=== PATIENT | male | born 1945 | race Caucasian/White ===

== ENCOUNTER 2022-04-09 13:35 | Outpatient (CLI) | payer MEDICARE, SELFPAY ==
[2022-04-09 19:42] LABS: Hematocrit 50.2 % (42.0-52.0); Hemoglobin 16.4 g/dL (14.0-18.0); Mean Corpuscular HGB Conc 32.7 g/dl (32-36); Mean Corpuscular Hemoglobin 30.3 pg (26-34); Mean Corpuscular Volume 92.8 fl (80-100); Mean Platelet Volume 10.1 fl (7.4-10.4); Platelet Count Result 203 k/mm3 (150-375); Red Blood Count 5.41 M/mm3 (4.6-6.20); Red Cell Distribution Width 13.1 % (11.5-14.5); White Blood Count 5.5 K/mm3 (4.5-10.0)
[2022-04-09 19:52] LABS: Alanine Aminotransferase 28 U/L (6-50); Albumin Level 4.2 g/dL (3.5-5.1); Alkaline Phosphatase 75 U/L (38-126); Anion Gap 12 mmol/L (8-16); Aspartate Amino Transferase 48 U/L (17-59); Blood Urea Nitrogen 24 mg/dL (9-20); Calcium 8.7 mg/dL (8.4-10.2); Carbon Dioxide 28 mmol/L (22-30); Chloride 101 mmol/L (98-107); Cholesterol 194 mg/dL (0-200); Estimated Glomerular Filt Rate > 60; Glucose 89 mg/dL (65-110); HDL Direct 43 mg/dL; Potassium 3.8 mmol/L (3.4-5.0); Sodium 141 mmol/L (137-145); Triglycerides 202 mg/dL (<150)
[2022-04-09 20:03] LABS: LDL Cholesterol Direct 109 mg/dL
[2022-04-09 20:13] LABS: Hemoglobin A1C 5.4 % (<5.7)
== END 2022-04-09 13:36 | disposition home or self-care (01) ==
LOC: ANHGOSHLAB 13:39
PROVIDERS: PCP Family Medicine; Visit Provider Nurse Practitioner Family
DX: E11.9 Type 2 diabetes mellitus without complications (principal); E78.5 Hyperlipidemia, unspecified; I10 Essential (primary) hypertension
CPT/HCPCS: 36415; 80053; 80061; 83036; 85027

== ENCOUNTER 2022-11-18 18:53 | Emergency (ER) | payer MEDICARE, SELFPAY ==
--- NOTE | ~2022-11-18 | XR_ITS ---
XR hip RT 2V w AP pelvis 11/18/2022 19:51 Indication: Right hip pain after fall Procedure: 3 views right hip including AP pelvis Comparison: No prior studies for comparison. Findings: There is anatomic alignment. Pelvic rings are intact. There are degenerative changes of the pubic symphysis. No acute fracture or traumatic malalignment. Impression: 1: No acute fracture. Reviewed, dictated and finalized at location A. Impression: 1: No acute fracture.
--- NOTE | ~2022-11-18 | XR_ITS ---
XR knee RT 3V, XR femur RT min 2V 11/18/2022 19:51 Indication: Right knee pain after fall Procedure: 3 views right knee and 2 views right femur Comparison: No prior studies for comparison. Findings: No fracture or traumatic malalignment. There is a large amount of amorphous soft tissue in the region of the quadriceps tendon, suspicious for tear. There is a joint effusion. No foreign arabella s. Impression: 1: Soft tissue mass superior to the patella, most likely secondary to quadriceps tear. Consider corre lation with MRI. Reviewed, dictated and finalized at location A. Impression: 1: Soft tissue mass superior to the patella, most likely secondary to quadricep s tear. Consider correlation with MRI. Impression: 1: Soft tissue mass superior to the patella, most likely secondary to quadricep s tear. Consider correlation with MRI.
[2022-11-18 19:02] VITALS: BP 167/100; PULSE 98; RESP 18; TEMP 36.6; O2SAT 97
--- NOTE | 2022-11-18 20:00 | ED.GENADULT ---
HPI - General Adult General Chief complaint: Fall Stated complaint: RIGHT LEG WEAKNESS/PAIN S/P FALL Time Seen by Provider: 11/18/22 19:04 History of Present Illness HPI narrative: Is a 76-year-old gentleman presenting ED after a fall. 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 he struck his leg on the right thigh. Afterwards he was unable to stand due to pain. Patient denies any head trauma or any medical symptoms preceding the fall. Denies any other injuries. He is not on blood thinners. Related Data Home Medications Medication Instructions Recorded Confirmed cyanocobalamin (vitamin B-12) 5,000 mcg PO DAILY 09/21/19 10/16/22 5,000 mcg capsule metoprolol succinate 25 mg 25 mg PO DAILY 09/21/19 10/16/22 tablet,extended release 24 hr (Toprol XL) multivitamin 1 tablet PO DAILY 09/21/19 10/16/22 ascorbic acid (vitamin C) 500 mg 1,000 mg PO DAILY 09/29/21 10/16/22 capsule cholecalciferol (vitamin D3) 25 25 mcg PO DAILY 09/29/21 10/16/22 mcg (1,000 unit) capsule atorvastatin 10 mg tablet 10 mg PO QHS 10/16/22 10/16/22 Allergies Allergy/AdvReac Type Severity Reaction Status Date / Time Penicillins Allergy Unknown Unknown Verified 10/16/22 09:52 SHELLFISH Allergy Severe SEVERE Uncoded 10/16/22 09:52 N/V/D [facility] Past Medical History Medical History (Updated 11/18/22 @ 21:02 by Baldo Allison MD) Anxiety Aortic stenosis Atopic dermatitis Essential (primary) hypertension Hyperlipidemia Prediabetes Quadriceps tendon rupture Thoracic ascending aortic aneurysm Surgical History Surgical History History of cataract surgery (~2014) b/l History of tonsillectomy (~1971) Family History Family History Father Family history of elevated blood lipids Other Family history of mental disorder Social History Social History Social History: . Lives in [place] with his 2 cats. Pt is very active with [employer] in [place]. He enjoys volunteering. 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 Smoking status: Former smoker Tobacco type: cigarettes Smoking end date: 08/02/89 Additional smoking assessment comments: Quit in 1980s Alcohol intake: current Substance use: never Substance use type: does not use Lack of Transportation: No Lack of Food: Never True Current Housing: I Have Housing Concerned About Future Housing: No Difficulty Paying Gas/Electric Bills: No Difficulty Paying for Meds: No Currently Unemployed: No Education: Decline to Answer Difficulty w/ Childcare or Family Care: Decline to Answer Exam Narrative: APPEARANCE: No apparent distress. Patient is pleasant and polite during the interview Head: atraumatic. EYES: EOMI, NOSE: Atraumatic NECK: Trachea midline RESPIRATORY: No increased rate of breathing CARDIOVASCULAR: RRR, ABDOMINAL: Non-distended MUSCULOSKELETAl: full exam of the right lower extremity revealed tenderness along the lateral thigh. Patient is unable to extend at the knee. Flexion at the knee is intact. hip flexion and extension is intact. Foot is warm cap refills less than 2 seconds. Pain is not out of proportion. NEURO: Alert. Moving 4/4 extremities SKIN:: Warm, dry. Normal color PSYCHIATRIC: Normal affect Course Vital Signs Vital signs: Vital Signs Temperature 97.9 F 11/18/22 19:02 Pulse Rate 98 11/18/22 19:02 Respiratory Rate 18 11/18/22 19:02 Blood Pressure 167/100 H 11/18/22 19:02 Pulse Oximetry 97 11/18/22 19:02 Oxygen Delivery Room Air 11/18/22 19:02 Temperature 97.9 F 11/18/22 19:02 Pulse Rate 89 11/18/22 20:13 Respiratory Rate 19 11/18/22 20:13 Blood Pressure 124/85 11/18/22 20:13 Pulse Oximetry 97 11/18/22 20:13 Oxygen Delivery Room
[2022-11-18] MEDS: HYDROcodone/acetaminophen (*CRX) 5-325 MG TABLET 1 TAB PO (20:06)
[2022-11-18] MEDS: ACETAMINOPHEN 325 MG TABLET 650 MG PO (20:06)
[2022-11-18] MEDS: ONDANSETRON HCL ODT 4 MG TABLET (20:07)
[2022-11-18 20:13] VITALS: BP 124/85; PULSE 89; RESP 19; O2SAT 97
== END 2022-11-18 22:04 | disposition home or self-care (01) ==
PROVIDERS: Emergency Provider Emergency Medicine; PCP Family Medicine
DX: S76.911A Strain of unspecified muscles, fascia and tendons at thigh level, right thigh, initial encounter (principal); I35.0 Nonrheumatic aortic (valve) stenosis; I10 Essential (primary) hypertension; E78.5 Hyperlipidemia, unspecified; R73.03 Prediabetes; Z98.42 Cataract extraction status, left eye; Z98.41 Cataract extraction status, right eye; Z87.891 Personal history of nicotine dependence; W01.0XXA Fall on same level from slipping, tripping and stumbling without subsequent striking against object, initial encounter
CPT/HCPCS: 73502; 73552; 73562; 99284; A9270

== ENCOUNTER 2022-12-23 09:53 | Outpatient (RCR) | payer MEDICARE, SELFPAY ==
--- NOTE | 2022-12-23 11:11 | PTOPEVAL1 ---
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 he reports he has had xrays of the R knee. he reports he has a torn muscle. he reports his ortho believes there is a muscle torn and possibly a ligament torn in the knee as well. he reports his ortho would like to handle this conservatively for now and work on walking again without an AD. he reports prior to his injury he was using no AD. he reports he would get fatigue with activities due to his aortic stenosis. he reports he is currently unable to walk without crutches. he reports he is also wearing a brace which he did not need prior to his injury. 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 he reports little pain in the R knee, but reports it will buckle on him from time to time. Reported Pain Level Pain Score 0: Self Report Assessment PT Clinical Summary mr. amaya is a 77 yo man who presents to skilled PT services for evaluation and treatment of R knee pain following an injury about 5 weeks ago. he presents this date with signs and symptoms of a quad tendon tear of the R knee. he would benefit from continued skilled PT services to improve his rom, strength, gait mechanics, and return to prior level functional activities/endurance. Plan of Care Interventions Electrical Stimulation,Gait Training,Hot Pack/Cold Pack,Manual Therapy,Neuro Re-education,Patient/ Caregiver Educati,Therapeutic Activities, Therapeutic Exercise PT Services Indicated Yes Treatment Frequency and 3x weekly for 12 visits Duration These treatments will address the objective and functional deficits as defined above. The patient will be advanced safely and appropriately in order for the patient to progress towards his/her prior level of function. Additional exercises will be introduced and as well as a comprehensive home exercise program upon discharge, if needed, ?to ensure carryover of functional gains achieved in the clinic. This treatment plan has been reviewed and agreement upon by the patient.
--- NOTE | 2022-12-23 11:11 | OPREHPOC ---
Outpatient Therapy Plan of Care This is a Multidisciplinary Plan of Care that may contain components documented by all disciplines (PT, OT, and ST.) PT Problem 1 PT Problem #1 Knowledge Deficit PT Goal 1 Goal independent and compliant with HEP to improve tolerance for continued skilled PT and exercises Target Visit 6 PT Problem 2 PT Problem #2 Impaired Strength PT Goal 1 Goal 1. patient to display 3/5 R knee extension 2. patient to display 3/5 R hip flexion without extension lag of the knee Target Visit 12 PT Problem 3 PT Problem #3 Impaired Range of Motion PT Goal 1 Goal patient to achieve 0-130 degrees arom R knee mobility Target Visit 12 PT Problem 4 PT Problem #4 Impaired Functional Mobil PT Goal 1 Goal 1. patient to DC use of all AD for ambulation 2. patient to stand and play music for 4 hours without knee buckling or feeling unstable 3. LEFS to display less than 30% functional deficits Target Visit 12
--- NOTE | 2023-01-18 16:54 | PTOPPROG ---
Assessment and note entered by JT File, PT Evaluation Information Assessment Status Progress Diagnosis R quad strain Onset 11/18/22 Subjective Information patient reports he continues to be weak in the R knee. he reports he is still not able to drive. he reports he has to have a cane for ambulation. Assessment PT Clinical Summary mr. amaya presents to skilled PT for his 10th skilled therapy visit. he is progressed from walker to cane for ambulation, but continues to display signs/symptoms of R quad tear noting lack of ability to perform LAQ and SLR. he has made progress in goals for HEP performance and pain control. he would benefit from continued skilled PT for remainder of visits on initial POC to progress HEP and prepare for future R knee surgery . Plan of Care Interventions Electrical Stimulation,Gait Training,Hot Pack/Cold Pack,Manual Therapy,Neuro Re-education,Patient/ Caregiver Educati,Therapeutic Activities, Therapeutic Exercise PT Services Indicated Yes Treatment Frequency and continue skilled PT for 2 more visits per initial Duration POC These treatments will address the objective and functional deficits as defined above. The patient will be advanced safely and appropriately in order for the patient to progress towards his/her prior level of function. Additional exercises will be introduced and as well as a comprehensive home exercise program upon discharge, if needed, ?to ensure carryover of functional gains achieved in the clinic. This treatment plan has been reviewed and agreement upon by the patient.
--- NOTE | 2023-01-22 15:13 | OPREHPOC ---
Outpatient Therapy Plan of Care This is a Multidisciplinary Plan of Care that may contain components documented by all disciplines (PT, OT, and ST.) PT Problem 1 PT Problem #1 Knowledge Deficit PT Goal 1 Goal independent and compliant with HEP to improve tolerance for continued skilled PT and exercises Target Visit 6 Progress Met PT Problem 2 PT Problem #2 Impaired Strength PT Goal 1 Goal 1. patient to display 3/5 R knee extension 2. patient to display 3/5 R hip flexion without extension lag of the knee Target Visit 12 Progress Not Met PT Problem 3 PT Problem #3 Impaired Range of Motion PT Goal 1 Goal patient to achieve 0-130 degrees arom R knee mobility Target Visit 12 Progress Partially Met PT Problem 4 PT Problem #4 Impaired Functional Mobil PT Goal 1 Goal 1. patient to DC use of all AD for ambulation 2. patient to stand and play music for 4 hours without knee buckling or feeling unstable 3. LEFS to display less than 30% functional deficits Target Visit 12 Progress Not Met
--- NOTE | 2023-01-22 15:13 | PTOPDC ---
Assessment and note entered by Joleen Rowe DPT Evaluation Information Assessment Status Re-evaluation Diagnosis R quad strain Onset 11/18/22 Subjective Information Patient reports he has not driven. He reports he has been walking around the house without a cane but has noticed more buckling without the cane Reported Pain Level Pain Score 0: Self Report Pain Score 0: Self Report Assessment PT Clinical Summary Patient was seen for 12 visits of skilled PT. He did not meet goals but improved functional ability . He continues to lack strength of the R LE and decreased stabity at the R LE. He has improved his ability to ambulate with a STC and proper gait mechanics. Patient is independent with HEP and will be discharged at this time. Plan of Care PT Services Indicated No
== END 2023-01-22 15:16 | disposition home or self-care (01) ==
LOC: CHSPT 09:53
PROVIDERS: Visit Provider Orthopaedic Surgery
DX: S76.119D Strain of unspecified quadriceps muscle, fascia and tendon, subsequent encounter (principal)
CPT/HCPCS: 97110; 97161; 97530

== ENCOUNTER 2023-06-03 14:18 | Outpatient (RCR) | payer MEDICARE, SELFPAY ==
--- NOTE | 2023-06-03 15:29 | OPREHPOC ---
Outpatient Therapy Plan of Care This is a Multidisciplinary Plan of Care that may contain components documented by all disciplines (PT, OT, and ST.) PT Problem 1 PT Problem #1 Knowledge Deficit PT Goal 1 Goal 1. independent and compliant with HEP Target Visit 8 PT Problem 2 PT Problem #2 Impaired Strength PT Goal 1 Goal 1. 5/5 R knee flex and extension 2. 4+/5 R hip flexion with no extenion lag in SLR Target Visit 16 PT Problem 3 PT Problem #3 Impaired Range of Motion PT Goal 1 Goal 1. 0-120 degrees or better active R knee mobility Target Visit 16 PT Problem 4 PT Problem #4 Impaired Functional Mobil PT Goal 1 Goal 1. patient to ambulate with no AD and no brace for 6 minutes for 800ft or better 2. patient to ambulate up and down steps with reciprocal mechanics and no AD 3. patient to ambulate with normal gait mechanics on level surfaces 4. patient to squat and lift 30lbs box from floor to waist with safe mechanics 5. patient to return to recreational music playing and other functional activities Target Visit 16
--- NOTE | 2023-06-03 15:29 | PTOPEVAL1 ---
Assessment and note entered by JT File, PT Evaluation Information Assessment Status Evaluation Diagnosis s/p quad tendon repair R Onset 04/06/23 Subjective Information patient had a quad tendon tear on 11/18/22. he had repair of this tear on 04/06/23. he reports he was locked in extension on the R knee for about 6- 7 weeks post surgery. he is coming to therapy now to improve his strength, rom, and gait. he reports he still cannot bend the knee fully, has trouble walking, and leary of steps. he reports he uses a knee brace at all times, and uses a can and hand rails for steps. Reported Pain Level Pain Score 0: Self Report Assessment PT Clinical Summary mr. amaya is a 77 yo man who presents to skilled PT services for evaluation and treatment of R knee decreased rom, decreased strength, and abnormal gait mechanics following a quad tendon repair of the R knee. he would benefit from continued skilled PT to improve his objective/functional deficits and progress towards a return to his prior level functional activities to improve his quality of life. Plan of Care Interventions Electrical Stimulation,Gait Training,Hot Pack/Cold Pack,Intermittent Compression,Manual Therapy, Neuro Re-education,Patient/Caregiver Educati, Therapeutic Activities,Therapeutic Exercise PT Services Indicated Yes Treatment Frequency and 2x weekly for 16 visits Duration These treatments will address the objective and functional deficits as defined above. The patient will be advanced safely and appropriately in order for the patient to progress towards his/her prior level of function. Additional exercises will be introduced and as well as a comprehensive home exercise program upon discharge, if needed, ?to ensure carryover of functional gains achieved in the clinic. This treatment plan has been reviewed and agreement upon by the patient.
--- NOTE | 2023-06-14 09:31 | PCPTNOTE ---
Pt. called and cancelled due to a developed illness.
--- NOTE | 2023-07-28 13:57 | OPREHPOC ---
Outpatient Therapy Plan of Care This is a Multidisciplinary Plan of Care that may contain components documented by all disciplines (PT, OT, and ST.) PT Problem 1 PT Problem #1 Knowledge Deficit PT Goal 1 Goal 1. independent and compliant with HEP Target Visit 8 Progress Met PT Problem 2 PT Problem #2 Impaired Strength PT Goal 1 Goal 1. 5/5 R knee flex and extension -partially met 2. 4+/5 R hip flexion with no extenion lag in SLR -met Target Visit 16 Comment continue PT Problem 3 PT Problem #3 Impaired Range of Motion PT Goal 1 Goal 1. 0-120 degrees or better active R knee mobility -progressing towards, continue Target Visit 16 Progress Partially Met PT Problem 4 PT Problem #4 Impaired Functional Mobil PT Goal 1 Goal 1. patient to ambulate with no AD and no brace for 6 minutes for 800ft or better -met 2. patient to ambulate up and down steps with reciprocal mechanics and no AD -partially met 3. patient to ambulate with normal gait mechanics on level surfaces -progressing towards 4. patient to squat and lift 30lbs box from floor to waist with safe mechanics -not met 5. patient to return to recreational music playing and other functional activities -not met Target Visit 16 Progress Partially Met Comment Continue all except 1 which was met
--- NOTE | 2023-07-28 13:57 | PTOPPROG ---
Assessment and note entered by Jeana Munoz, PT Evaluation Information Assessment Status Progress Diagnosis s/p R quadriceps tendon repair Onset 04/06/23 Subjective Information Ari Escalona reports his right knee and quadriceps is doing well. He has not had pain in it just some stiffness. He is still taking stairs one at a time but is able to walk without a brace or assistive device as much as he needs to for shopping and daily activities. He also has not drove yet. He notes his energy level has been intermittent since having COVID a few weeks ago. Assessment PT Clinical Summary Ari sEcalona has completed 8 skilled PT visits following a right quadriceps tendon repair performed on 04/06/23. He is reporting minimal pain but still has stiffness in his knee. He missed 1.5 weeks of PT due to having COVID. He is making steady progress with his knee ROM and strength. He demonstrates 117 degrees of passive knee flexion and 112 degrees of active assisted knee flexion ROM. He was able to ambulate 1,200 feet during the 6 minute walk test today. He continues to have mild limitations in ROM as well as functional strength for lifting and stair negotiation. He will continue to benefit from skilled PT to further address these deficits. Plan of Care Interventions Gait Training PT Services Indicated Yes Treatment Frequency and 2 times a week for 8 visits to finish original POC Duration These treatments will address the objective and functional deficits as defined above. The patient will be advanced safely and appropriately in order for the patient to progress towards his/her prior level of function. Additional exercises will be introduced and as well as a comprehensive home exercise program upon discharge, if needed, ?to ensure carryover of functional gains achieved in the clinic. This treatment plan has been reviewed and agreement upon by the patient.
--- NOTE | 2023-08-26 11:32 | OPREHPOC ---
Outpatient Therapy Plan of Care This is a Multidisciplinary Plan of Care that may contain components documented by all disciplines (PT, OT, and ST.) PT Problem 1 PT Problem #1 Knowledge Deficit PT Goal 1 Goal 1. independent and compliant with HEP Target Visit 8 Progress Met PT Problem 2 PT Problem #2 Impaired Strength PT Goal 1 Goal 1. 5/5 R knee flex and extension -partially met 2. 4+/5 R hip flexion with no extenion lag in SLR -met Target Visit 18 Comment continue PT Problem 3 PT Problem #3 Impaired Range of Motion PT Goal 1 Goal 1. 0-120 degrees or better active R knee mobility -progressing towards, continue Target Visit 18 Progress Partially Met PT Problem 4 PT Problem #4 Impaired Functional Mobil PT Goal 1 Goal 1. patient to ambulate with no AD and no brace for 6 minutes for 800ft or better -met 2. patient to ambulate up and down steps with reciprocal mechanics and no AD -partially met 3. patient to ambulate with normal gait mechanics on level surfaces -progressing towards 4. patient to squat and lift 30lbs box from floor to waist with safe mechanics -not met 5. patient to return to recreational music playing and other functional activities -not met Target Visit 18 Progress Partially Met Comment Continue all except 1 which was met
--- NOTE | 2023-08-26 11:32 | PTOPPROG ---
Assessment and note entered by Jeana Munoz, PT Evaluation Information Assessment Status Progress Diagnosis s/p R quadriceps tendon repair Onset 04/06/23 Subjective Information Ari Escalona presents to PT today after a 4 week absence. He reports he has not been able to come to PT because his daughter has not been able to bring him as she has been at the hospital with her daughter and he just got his own vehicle working. He reports he was doing well with his right leg until 08/24/23 he was trying to lift a 60# bag of birdseed out of his car and he felt a pull in the front of his hip. He has been having pain in the upper thigh since then but it is getting a little better each day. He has not been having pain in the lower thigh or knee but he feels like his ROM has declined because he has not been performing exercises at home daily. He reports he usually performs exercises every other day. He continues to have difficulty with walking down stairs and has to take them one at a time. He also has difficulty bending the knee. Assessment PT Clinical Summary Ari Escalona has completed 10 physical therapy visits for a right quadriceps tendon repair. He has had a gap in treatment the last 4 weeks due to his granddaughter being hospitalized and not having a vehicle or ride to PT. He is reporting ongoing difficulty bending the right knee, lifting heavier weight, and going down stairs. He objectively demonstrates a regression in right knee flexion AROM since last visit, decreased right knee strength, decreased balance, and decreased gait. He demonstrates a moderate fall risk per the Tinetti Balance Scale. He will continue to benefit from skilled PT to address these limitations and return him to his PLOF. Plan of Care Interventions Neuro Re-education,Patient/Caregiver Educati, Therapeutic Activities,Therapeutic Exercise PT Services Indicated Yes Treatment Frequency and Continue skilled PT 2 times a week for 8 visits Duration These treatments will address the objective and functional deficits as defined above. The patient will be advanced safely and appropriately in order for the patient to progress towards his/her prior level of function. Additional exercises will be introduced and as well as a comprehensive home exercise program upon discharge, if needed, ?to ensure carryover of functional gains achieved in the clinic. This treatment plan has been reviewed and agreement upon by the patient.
--- NOTE | 2023-08-31 14:46 | OPREHPOC ---
Outpatient Therapy Plan of Care This is a Multidisciplinary Plan of Care that may contain components documented by all disciplines (PT, OT, and ST.) PT Problem 1 PT Problem #1 Knowledge Deficit PT Goal 1 Goal 1. independent and compliant with HEP Target Visit 8 Progress Met PT Problem 2 PT Problem #2 Impaired Strength PT Goal 1 Goal 1. 5/5 R knee flex and extension -partially met 2. 4+/5 R hip flexion with no extenion lag in SLR -met Target Visit 18 PT Problem 3 PT Problem #3 Impaired Range of Motion PT Goal 1 Goal 1. 0-120 degrees or better active R knee mobility -progressing towards, continue Target Visit 18 Progress Partially Met PT Problem 4 PT Problem #4 Impaired Functional Mobil PT Goal 1 Goal 1. patient to ambulate with no AD and no brace for 6 minutes for 800ft or better -met 2. patient to ambulate up and down steps with reciprocal mechanics and no AD -partially met 3. patient to ambulate with normal gait mechanics on level surfaces -progressing towards 4. patient to squat and lift 30lbs box from floor to waist with safe mechanics -not met 5. patient to return to recreational music playing and other functional activities -not met Target Visit 18 Progress Partially Met
== END 2023-08-31 18:00 | disposition still patient (30) ==
LOC: CHSPT 14:18
DX: S76.111D Strain of right quadriceps muscle, fascia and tendon, subsequent encounter (principal)
CPT/HCPCS: 97016; 97110; 97140; 97150; 97161; 97530; 97750

== ENCOUNTER 2023-09-02 13:36 | Outpatient (RCR) | payer MEDICARE, SELFPAY ==
--- NOTE | 2023-09-23 14:30 | OPREHPOC ---
Outpatient Therapy Plan of Care This is a Multidisciplinary Plan of Care that may contain components documented by all disciplines (PT, OT, and ST.) PT Problem 1 PT Problem #1 Knowledge Deficit PT Goal 1 Goal 1. independent and compliant with HEP Target Visit 8 Progress Met PT Problem 2 PT Problem #2 Impaired Strength PT Goal 1 Goal 1. 5/5 R knee flex and extension -partially met 2. 4+/5 R hip flexion with no extenion lag in SLR -met Target Visit 22 Comment continue PT Problem 3 PT Problem #3 Impaired Range of Motion PT Goal 1 Goal 1. 0-120 degrees or better active R knee mobility -progressing towards, continue Target Visit 22 Progress Partially Met PT Problem 4 PT Problem #4 Impaired Functional Mobil PT Goal 1 Goal 1. patient to ambulate with no AD and no brace for 6 minutes for 800ft or better -met 2. patient to ambulate up and down steps with reciprocal mechanics and no AD -partially met 3. patient to ambulate with normal gait mechanics on level surfaces -progressing towards 4. patient to squat and lift 30lbs box from floor to waist with safe mechanics -met 5. patient to return to recreational music playing and other functional activities -met Target Visit 22 Progress Partially Met Comment Continue all except 1 which was met
--- NOTE | 2023-09-23 14:30 | PTOPEVAL1 ---
Assessment and note entered by Jeana Munoz, PT Evaluation Information Assessment Status Progress Diagnosis s/p R quadriceps tendon repair Onset 04/06/23 Subjective Information Ari Escalona reports his right knee is feeling good , he gets occasional pain on the outer side of the knee but not very often or very high pain. He feels his range of motion is where it should be but his strength is not quite where it needs to be . He feels his strength will improve better if he can continue PT and utilize the equipment here and be guided by a PT. He is still not able to go down stairs reciprocally. He also has difficulty carrying things up and down stairs. Reported Pain Level Pain Score 0: Self Report Assessment PT Clinical Summary Ari Escalona has completed 18 skilled PT visits since undergoing a right quadriceps tendon repair on 04/06/23. He did have a gap in treatment due to his daughter and granddaughter being hospitalized. He is reporting good ROM in the right knee but he does not feel like his strength is doing well enough. He still has difficulty with going down stairs reciprocally and carrying items up and down stairs. He demonstrates improved right knee ROM, improving right knee strength, and improving gait. He continues to have functional weakness in the right quadriceps as observed with stair negotiation he can not descend reciprocally. He will continue to benefit from skilled PT to further address right knee strength and functional abilities. Plan of Care Interventions Gait Training,Neuro Re-education,Patient/Caregiver Educati,Therapeutic Activities,Therapeutic Exercise PT Services Indicated Yes Treatment Frequency and Continue 2 times a week for 4 more visits Duration These treatments will address the objective and functional deficits as defined above. The patient will be advanced safely and appropriately in order for the patient to progress towards his/her prior level of function. Additional exercises will be introduced and as well as a comprehensive home exercise program upon discharge, if needed, ?to ensure carryover of functional gains achieved in the clinic. This treatment plan has been reviewed and agreement upon by the patient.
--- NOTE | 2023-10-07 13:54 | OPREHPOC ---
Outpatient Therapy Plan of Care This is a Multidisciplinary Plan of Care that may contain components documented by all disciplines (PT, OT, and ST.) PT Problem 1 PT Problem #1 Knowledge Deficit PT Goal 1 Goal 1. independent and compliant with HEP Target Visit 8 Progress Met PT Problem 2 PT Problem #2 Impaired Strength PT Goal 1 Goal 1. 5/5 R knee flex and extension -met 2. 4+/5 R hip flexion with no extenion lag in SLR -met Target Visit 22 Progress Met Comment continue PT Problem 3 PT Problem #3 Impaired Range of Motion PT Goal 1 Goal 1. 0-120 degrees or better active R knee mobility Target Visit 22 Progress Met PT Problem 4 PT Problem #4 Impaired Functional Mobil PT Goal 1 Goal 1. patient to ambulate with no AD and no brace for 6 minutes for 800ft or better -met 2. patient to ambulate up and down steps with reciprocal mechanics and no AD -met 3. patient to ambulate with normal gait mechanics on level surfaces -met 4. patient to squat and lift 30lbs box from floor to waist with safe mechanics -met 5. patient to return to recreational music playing and other functional activities -met Target Visit 22 Progress Met Comment Continue all except 1 which was met
--- NOTE | 2023-10-07 13:55 | PTOPDC ---
Assessment and note entered by Jeana Munoz, PT Evaluation Information Assessment Status Discharge Diagnosis s/p R quadriceps tendon repair Onset 04/06/23 Subjective Information Ari Escalona reports his right knee is doing well. He is able to perform all daily activities and feels comfortable continuing with independent exercises to continuing building strength back up. He is able to go up and down stairs now and he feels he has improved a lot with PT. Reported Pain Level Pain Score 0: Self Report Pain Score 0: Self Report Assessment PT Clinical Summary Ari Escalona has completed 22 skilled PT visits following a right quadriceps tendon repair performed on 04/06/23. He is reporting resolved pain and ability to perform all daily activities without difficulty. He demonstrates good strength in the right knee and hip, good right knee AROM, normal gait without an AD, good endurance, and good stair climbing ability. He is independent in a home exercise program to maintain knee ROM and strength in the right LE. Plan of Care PT Services Indicated No
== END 2023-10-07 14:00 | disposition home or self-care (01) ==
LOC: CHSPT 13:36
DX: S76.111D Strain of right quadriceps muscle, fascia and tendon, subsequent encounter (principal)
CPT/HCPCS: 97110; 97140; 97530; 97750

== ENCOUNTER 2023-10-01 11:05 | Emergency (ER) | payer MEDICARE, SELFPAY ==
[2023-10-01 11:14] VITALS: BP 135/77; PULSE 73; RESP 16; TEMP 37.2; O2SAT 96
--- NOTE | 2023-10-01 11:39 | ED.EYEPROB ---
HPI - Eye Problem General Chief complaint: Eye Problems Stated complaint: Eye Problem Time Seen by Provider: 10/01/23 11:54 Source: patient and RN notes reviewed Mode of arrival: ambulatory Limitations: no limitations History of Present Illness HPI Narrative: 77-year-old male presents with concern for bilateral eye redness, irritation, blurriness, drainage. Reports crusty eyes any wakes up in the morning. chief complaint: eye redness Related Data Home Medications Medication Instructions Recorded Confirmed cyanocobalamin (vitamin B-12) 5,000 mcg PO DAILY 09/21/19 10/01/23 5,000 mcg capsule metoprolol succinate 25 mg 25 mg PO DAILY 09/21/19 10/01/23 tablet,extended release 24 hr (Toprol XL) multivitamin 1 tablet PO DAILY 09/21/19 10/01/23 ascorbic acid (vitamin C) 500 mg 1,000 mg PO DAILY 09/29/21 10/01/23 capsule cholecalciferol (vitamin D3) 25 25 mcg PO DAILY 09/29/21 10/01/23 mcg (1,000 unit) capsule Allergies Allergy/AdvReac Type Severity Reaction Status Date / Time Penicillins Allergy Unknown Unknown Verified 10/01/23 11:43 SHELLFISH Allergy Severe SEVERE Uncoded 10/01/23 11:43 N/V/D Review of Systems Review of Systems: CONSTITUTIONAL: Denies malaise, chills, sweats, or fever. EYES: Denies visual changes. Reports bilateral redness, irritation, discharge. ENT: Denies rhinorrhea, congestion, sinus pain, otalgia or sore throat. SKIN: Denies rash or itching. NEUROLOGIC: Denies numbness, weakness, or headache. PSYCHIATRIC: Denies anxiety or depression. All systems reviewed & are unremarkable except as noted in HPI and below PMFSH Past Medical History Medical History Anxiety Aortic stenosis Atopic dermatitis Essential (primary) hypertension Hyperlipidemia Prediabetes Quadriceps tendon rupture Thoracic ascending aortic aneurysm Surgical History Surgical History History of cataract surgery (~2014) b/l History of tonsillectomy (~1971) Family History Family History Father Family history of elevated blood lipids Other Family history of mental disorder Social History Social History Social History: . Lives in [place] with his 2 cats. Pt is very active with [employer] in [place]. He enjoys volunteering. 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 Smoking status: Former smoker Tobacco type: cigarettes Smoking end date: 08/02/89 Additional smoking assessment comments: Quit in Alcohol intake: current Substance use: never Substance use type: does not use Lack of Transportation: No Lack of Food: Never True Current Housing: I Have Housing Concerned About Future Housing: No Difficulty Paying Gas/Electric Bills: No Difficulty Paying for Meds: No Currently Unemployed: No Education: Decline to Answer Difficulty w/ Childcare or Family Care: Decline to Answer Occupation/Education: retired Comments At time of signature, agree with nursing past medical, surgical, social and family history. There is no relevant family history pertinent to the presenting complaint Exam Narrative: GENERAL: Well-appearing, well-nourished, and in no acute distress. HEAD: Normocephalic, atraumatic. EYES: PERRLA, sclera clear, and EOMI. No nystagmus. Bilateral conjunctivae and sclera injected yellow drainage. Upper and lower eyelid unremarkable, no periorbital edema noted ENT: Nares clear, turbinates pink, no rhinorrhea or epistaxis. Mucous membranes moist. TM pearly antony with sharp light reflex bilaterally; no tragal tenderness. NECK: Supple. CHEST: No respiratory distress. Speaks in full sentences. HEART: Regular rate and rhythm. SKIN: Warm, dry, no visible rash. NEURO: Alert and o
== END 2023-10-01 12:00 | disposition home or self-care (01) ==
PROVIDERS: Emergency Provider Nurse Practitioner; PCP Family Medicine
DX: H10.9 Unspecified conjunctivitis (principal); Z87.891 Personal history of nicotine dependence; I10 Essential (primary) hypertension; E78.5 Hyperlipidemia, unspecified; R73.03 Prediabetes; I35.0 Nonrheumatic aortic (valve) stenosis
CPT/HCPCS: 99213; G0463

== ENCOUNTER 2024-09-11 08:28 | Emergency (ER) | payer MEDICARE, SELFPAY ==
--- OUTSIDE RECORDS SUMMARY | 2024-09-11 08:37 | XMS_ITS | Continuity of Care Document ---
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 Name Role Phone Herrera Macias MD Unavailable Unavailable Allergies, Adverse Reactions, Alerts Substance Reaction Status Criticality Penicillins Active No Information Medications Medication Instructions Dosage Effective Dates (start - stop) Status Comments metoprolol succinate ER 25 mg tablet,extended release 24 hr take 1 tablet by oral route every day 25 MG - Active Vitamin D3 400 unit capsule take 1 tablet by oral route every day - Active Vitamin B-12 1,000 mcg/mL oral drops take 1 unit by oral route every day - Active lisinopril 10 mg tablet take 1 tablet by oral route every day 10 MG - Active alprazolam 0.5 mg tablet take 1 tablet by oral route 3 times every day 0.5 MG - Active Atorvastatin 10 mg Tab take 1 tablet (10 MG) by ORAL route every day 10 MG - Active Procedures Procedure Date No Charge Optomap Fundus Photos Oct-05-03 022 Eye Exam & Treatment Fundus Photography W/ Report Eye Exam & Treatment Fundus Photography W/ Report Eye Exam & Treatment Eye Exam & Treatment Eye Exam & Treatment Eye Exam & Treatment Eye Exam & Treatment Eye Exam & Treatment Eye Exam & Treatment Eye Exam, New Patient Post-op Follow-up Visit After Cataract Laser Surgery Post-op Follow-up Visit After Cataract Laser Surgery Office/outpatient Visit, Est Post-op Follow-up Visit Post-op Follow-up Visit Remove Cataract, Insert Lens,Comanaged F IOLMaster-Professional Post-op Follow-up Visit Post-op Follow-up Visit Remove Cataract, Post Op Care 0 PreOp Assessment Performed Remove Cataract, Insert Lens,Comanaged D PreOp Assessment Performed IOLMaster-Professional IOLMaster-Technical Corneal Topography Office/outpatient Visit, Est Eye Exam & Treatment Visual Field Examination(s) Eye Exam & Treatment Visual Field Examination(s) Office/outpatient Visit, Est Advance Directives Directive Yes / No Effective Date File Name No Information Encounters Encounter Description Practice Location Reason(s) For Visit Diagnoses Date Provider Providers [facility] [id number], [place], [place], [address], [place] tel:[phone] SEC [place] Professional Complete Exam (chief complaint) Pseudophakia of both eyesMeibomia n gland dysfunction (MGD), bilateral, both upper and lower lidsMeibomia n gland dysfunction left eye, upper and lower eyelidsAller gic conjunctivit is, bilateral Oct-1 0-202 2 Gilberto Silverman. [address] [facility] [address] [facility] [address], [place], [place], [address], [place]. tel:[phone] Referring Provider: Herrera Helm, [address], [place], [address] . tel:[phone] [facility], [address], [place], [place], [address], tel:[phone] [place] Complete Exam (chief complaint) Pseudophakia of both eyesRPE mottling of maculaDermat ochalasis of upper and lower eyelids of both eyes 3-202 1 Gilberto Silverman. [address] [employer], [address], [place], [place], [address], [place]. tel:[phone] Referring Provider: Herrera Helm, [address] [employer] [facility] [employer] [address], [place], [address] . tel:[phone] [facility], [address], [place], [place], [address], [place] tel:[phone] SEC [place] Professional Complete Exam (chief complaint) Bilateral artificial lens implantPunct ate keratitis, bilateralDer matochalasis of both upper eyelidsMeibo marty gland dysfunction (MGD) of both eyesDrusen (degenerativ e) of macula, right eye 0- 0 iGlberto Silverman. [address] [employer], [address], [place], [place], [address], [place]. tel:[phone] Referring Provider: Herrera Helm, [address], [place], [address] . tel:[phone] [facility], [address], [place], [place], [address], [place] tel:[phone] [place] Professional Complete Exam (chief complaint) Pseudophakia of both eyesDrusen (degenerativ e) of macula, right eyeOcular hypertension , bilateralPun ctate keratitis, bilateral 2-201 9 Gilberto Silverman. [address] [employer] [employer], [address], [place], [place], [address], [place]. tel:[phone] Referring Provider: Herrera Helm, [address] [employer] [employer], [place], [address] . tel:[phone] [facility], [address], [place], [place], [address], [place] tel:[phone] [place] Professional Complete Exam (chief complaint) Bilateral artificial lens implantOcula r hypertension , bilateralAbn ormally thick cornea determined by ultrasound pachymetryDe rmatochalasi s of upper and lower eyelids of both eyes 8 Gilberto Silverman. [address], [place], [place], [address], [place]. tel:[phone] Referring Provider: Herrera Helm, [address], [place], [address] . tel:[phone], [address], [place], [place], [address], [place] tel:[phone] [place] Professional Complete Exam (chief complaint) Abnormally thick cornea determined by ultrasound pachymetryPs eudophakia of both eyes 7 Jennifer Oates. [address], [place], [place], [address], [place]. tel:[phone] Referring Provider: Иван Christiansen, [address], [place], [address] . tel:[phone], [address], [place], [place], [address], [place] [phone] [place] Complete Exam (chief complaint) No Information 6 Jennifer Oates. [address], [address], [place], [place], [address], [place]. tel:[phone] Referring Provider: Иван Christiansen, [address] [place], [address] . tel:[phone] [facility], [address], [place], [place], [address], [place] tel:[phone] SEC [place] Professional Blurry vision (chief complaint) No Information 5 Jennifer Oates. [address] [facility], [address], [place], [place], [address], . tel:[phone] Referring Provider: Иван Christiansen, [address], [place], [address] . tel:[phone] [facility], [address], [place], [place], [address], [place] tel:[phone] [place] Professional a comprehensive exam (chief complaint) No Information 4 Jennifer Oates. [address] [facility], [address], [place], [place], [address], . tel:[phone] Referring Provider: Иван Christiansen, [address] [address], [place], [address] . tel:[phone] [facility], [address], [place], [place], [address], [place] tel:[phone] [place] Professional eyes doing well, without complaint. (chief complaint) No Information 3 Jennifer Oates. [address], [address], [place], [address], . tel:[phone] Referring Provider: Иван Christiansen, [address] [facility] [address], [place], [address] . tel:[phone] [facility], [address], [place], [place], [address], [place] tel:[phone] SEC Rajesh Brooks No Information 3 Wayne Inman. [address], [address], [place], [place], [address], [place]. tel:[phone] [facility], [address], [place], [place], [address], [place] tel:[phone] SEC [place] Professional No Information 2 Wanmiguel angel Oates. [address] [facility], [address], [place], [address], . tel:[phone] Referring Provider: Иван Christiansen, [address] [facility] [place], [address] . tel:[phone] [facility], [address], [place], [place], [address], [place] tel:[phone] SEC [place] Professional No Information 1 Wanmiguel angel Oates. [address] [facility], [facility] [place], [place], [address], . tel:[phone] Referring Provider: Иван Christiansen, [address] [facility] [place], [address] . tel:[phone] [facility], [address], [place], [place], [address], [place] tel:[phone] SEC [place] Professional No Information 1 Jennifer Oates. [address] [facility], [facility] [place], [address], . tel:[phone] Referring Provider: Иван Christiansen, [address] [facility] [place], [address] . tel:[phone] [facility], [address], [place], [place], [address], [place] tel:[phone] SEC [place] Professional No Information 1 Wanmiguel angel Oates. [address] [facility], [facility] [place], [address], . tel:[phone] Referring Provider: Иван Christiansen, [address], [place], [address] . tel:[phone] Office/outpa tient Visit, Est [facility], [address], [place], [place], [address], [place] [phone] SEC [place] [employer] Professional No Information 1 Wanmiguel angel Oates. [address], [place], [place], [address], [place]. tel:[phone] Referring Provider: Иван Christiansen, [address], [place], [address] . tel:[phone] [facility], [address], [place], [place], [address], [place] tel:[phone] SEC [place] [employer] Professional No Information 1 Wanmiguel angel Oates. [address], [address] [place], [address], [place]. tel:[phone] Referring Provider: Иван Christiansen, [address], [place], [address] . tel:[phone] [facility], [address], [place], [place], [address], [place] tel:[phone] SEC [place] Professional No Information 1 Wanmiguel angel Oates. [address], [address] [place], [address], [place]. tel:[phone] Referring Provider: Иван Christiansen, [address], [place], [address] . tel:[phone] [facility], [address], [place], [place], [address], [place] tel:[phone] Gonzalezissant [place] No Information 0 1 [place]. [address], [address], [place], [place], [address], [place]. tel:[phone] Referring Provider: Иван Christiansen, [address] [address] [facility] [address], [place], [address] . tel:[phone] [facility], [address], [place], [place], [address], [place] [phone] SEC Vina N Todd No Information 1 Wayne Storm. [address], [address], [place], [place], [address], [place]. tel:[phone] Referring Provider: Иван Christiansen, [address], [place], [address] . tel:[phone] [facility], [address], [place], [place], [address], [place] tel:[phone] SEC Rajesh N [facility] No Information 1 [place]. [address], [address], [place], [place], [address], [place]. tel:[phone] Referring Provider: Иван Christiansen, [address], [place], [address] . tel:[phone] [facility], [address], [place], [place], [address], [place] [phone] SEC [place] No Information 0 Jennifer Oates. [address] [place], [address], [place], [place], [address], [place]. tel:[phone] Referring Provider: Иван Christiansen, [address], [place], [address] . tel:[phone] [facility], [address], [place], [place], [address], [place] tel:[phone] SEC [place] Professional No Information Dec-1 0-201 0 Wankshawn Oates. [address], [address], [place], [place], [address], [place]. tel:[phone] Referring Provider: Иван Christiansen, [address], [place], [address] . tel:[phone] [facility], [address], [place], [place], [address], [place] tel:[phone] [facility] No Information Dec-0 9-201 0 Wayne Storm. [address], [address], [place], [place], [address], [place]. tel:[phone] Referring Provider: Иван Christiansen, [address], [place], [address] . tel:[phone] [facility], [address], [place], [place], [address], [place] [phone] SEC Rajesh N [place] No Information Dec-0 8-201 0 Wayne Storm. [address], [address], [place], [place], [address], [place]. tel:[phone] Referring Provider: Иван Christiansen, [address], [place], [address] . tel:[phone] [facility], [address], [place], [place], [address], [place] tel:[phone] SEC Rajesh N [place] No Information Oct-2 0-201 0 Wankshawn Oates. [address], [place], [place], [address], . tel:[phone] Referring Provider: Иван Christiansen, [address], [place], [address] . tel:[phone] Office/outpa tient Visit, Est [facility], [address], [place], [place], [address], [place] tel:[phone] SEC [place] Professional No Information 2-201 0 Wayne Inman. [address], [address], [place], [place], [address], [place]. tel:[phone] [facility], [address], [place], [place], [address], tel:[phone] SEC [place] Professional No Information 7-201 0 Abrahanmiguel angel Oates. [address] [facility], [address], [place], [place], [address], . tel:[phone] Referring Provider: Иван Christiansen, [address] [facility] [address], [place], [address] . tel:[phone] [facility], [address], [place], [place], [address], [place] tel:[phone] SEC [place] Professional No Information 8200 9 Abrahanmiguel angel Oates. [address], [place], [place], [address], . tel:[phone] Referring Provider: Иван Christiansen, [address], [place], [address] . tel:[phone] Office/outpa tient Visit, Est [facility], [address], [place], [place], [address], [place] tel:[phone] [place] Professional No Information 7 Jennifer Oates. [address] [facility], [address], [place], [place], [address], [place]. tel:[phone] Family History Family Member Type Diagnosis Age At Onset Brother Problem (finding) diabetes melli tus in first degree relative Aunt Problem (finding) Aunt Problem (finding) Diabetes mellitus Payers Payer name Insurance type Covered constitution party ID Authoriza tion(s) [place] [id number] Cign[employer] Medicare Supplement CI [id number] Social History Type Description Quantity Date Captured Comments Alcohol Use Details 2 beers weekly Caffeine Use Details 1 cup/1soda per wk per day Tobacco Use Status Ex-cigarette smoker 022 Smoking Status Former smoker Smoking Tobacco Use Details Cigarette: Age Stopped: 49 Cigarette: 1 Packs per day Sex Male Chief Complaint And Reason For Visit From encounter dated 05/11/2022 09:15'. Complete Exam (chief complaint). Description: The 76 year old patient presents for evaluation of Complete Exam in the right eye and left eye. Hx of PCIOL OU, YAG PC OU, and RPE Mottling OD. Patient states his eyes are watering a lot over the last couple of months. No gtts at this time. 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 Reason For Referral Reason For Referral No Information Plan Of Treatment Date Type Action Status Goal Tobacco cessation counseling completed Patient Education Learning About Retinal Drusen completed Patient Education Learning About Retinal Drusen completed History Of Present Illness Encounter Date Complaint History Of Prese nt Illness Complete Exam The 76 year old patient presents for evaluation of Complete Exam in the right eye and left eye. Hx of PCIOL OU, YAG PC OU, and RPE Mottling OD. Patient states his eyes are watering a lot over the last couple of months. No gtts at this time. 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 Complete Exam The 75 year old male presents for evaluation of Complete Exam in the right eye and left eye. Patient is pseudo ou with yag caps ou. Patient denies any changes in vision ou. Patient wears OTC reading glasses. Complete Exam The 74 year old male presents for a complete exam ou. Patient is pseudo ou with yag caps ou. Patient states eyes have been watering since September. Patient denies any changes in vision ou. Patient likes to play music and uses OTC reading glasses. Complete Exam The 73 year old male presents for a complete eye exam ou. Patient is pseudo ou with yag caps ou. Patient denies any changes in vision ou. Patient c/o eyes are really watering lately. Patient states he gets crusty in the am. Complete Exam The 72 year old male presents for a complete exam ou. Patient is pseudo ou with yag caps ou. Patient states eyes are doing good. Patient denies any changes in vision ou. Complete Exam The 71 year old male presents for Complete Exam in the right eye and left eye. Patient is pseudo ou with yag caps ou. Patient denies any changes in vision ou. Complete Exam The 70 year old male presents for Complete Exam. Pt has hx Phaco PCIOL OU, Yag OU. Pt does not use any AFT or gtt. Pt has no complaints OU. Blurry vision The 68 year old male presents for Complete Exam. HX Phaco IOL OU, YAG OU, and Meibomitis. Pt states he has to rub his eyes when he wakes up to clear his vision. Functional Status Date Functional Assessmen t No Information Instructions Date Instruction Additional Infor germaine Impression/Plan Impression/Plan Impression/Plan Impression/Plan Impression/Plan Educational material given Relat ed to Bilateral artificial lens implant Impression/Plan - Th ick Pachymetry and IOL OU:- IOL in good postion with open PC OU.- Vision and IOP are stable.- Thick pachymetry has created falsely high IOP readings in the past.- Optic nerve is healthy OU.- Recommend patient return to clinic in 1 year or sooner with problems. Follow up - Return t o clinic in 1 year for complete exam Follow up - Return i n 1 year with Иван Rodriguez M.D. for Complete Exam. Impression/Plan - IO L's in good position; open pc. Pt aware IOP elevated with very thick corneas. 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 Return to clinic in 1 year for complete exam or sooner with any problems. Bilateral artificial lens implant - Educational material given Related to Bilateral artificial lens implant - Good ocular health . no treatment needed. Return in 1 year for complete exam or sooner with any problems. Related to LENS REPLACEMENT NEC - Return in 1 year w jah Rodriguez M.D. for Complete Exam Related to LENS REPLACEMENT NEC General plan -LENS R EPLACEMENT NEC -HORDEOLUM INTERNUM - IOLs doing well. IOP normal. Discussed meibomitis and the use of a warm compress for relief. RTC in 1 year for a complete exam. Educational materials provided:about today's exam. 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
--- OUTSIDE RECORDS SUMMARY | 2024-09-11 08:37 | XMS_ITS | Clinical Summary ---
Author Organization [facility] Address [facility] [place] [address] Care Team Providers Care Supervisor Laundry Name Role Phone Ángel Armas DO Unavailable [phone] Josue Smiley MD Primary Care Provider [phone] Allergies Active Allergy Reactions Criticality Noted Date Comments Penicillins Hives,Rash Medium 04/29/2016 Shellfish Containing Products Diarrhea,Vomiting High 09/03/2021 Medications ALPRAZolam (XANAX) 0.5 mg tabletIndicati ons:take 2 tabs daily sometimes Take 1 tablet (0.5 mg total) by mouth daily 1 8 Active atorvastatin (LIPITOR) 10 mg tabletIndicati ons:hyperlipid emia Take 1 tablet (10 mg total) by mouth daily after lunch 4 8 Active lisinopril-hyd roCHLOROthiazi de (PRINZIDE,ZEST ORETIC) 20-12.5 mg per tabletIndicati ons:hypertensi on,take 1/2 tablet daily Take 1 tablet by mouth daily after lunch 1 8 Active cyanocobalamin , vitamin B-12, 5,000 mcg tablet,disinte gratingIndicat ions:Preventio n of Vitamin B12 Deficiency Take 1 tablet by mouth daily after lunch 7 Active multivitamin capsuleIndicat ions:Vitamin Deficiency Prevention Take 1 capsule by mouth daily after lunch Active calcium citrate-vitami n D2 250-100 mg-unit per tabletIndicati ons:Hypocalcem ia Prevention,Pre vention of Vitamin D Deficiency Take 1 tablet by mouth daily after lunch Active cholecalcifero l (VITAMIN D-3) 25 mcg (1,000 unit) tabletIndicati ons:SUPPLEMENT Take 1 tablet (1,000 Units total) by mouth daily after lunch Active ascorbic acid (VITAMIN C) 500 mg tablet,chewabl eIndications:S UPPLEMENT Take 1 tablet/chew tab (500 mg total) by mouth daily after lunch Active aspirin 325 mg tabletIndicati ons:Pain Take 1 tablet (325 mg total) by mouth 2 (two) times a day Active metoprolol XL (TOPROL-XL) 25 mg extended release tablet TAKE 1 TABLET (25 MG TOTAL) BY MOUTH DAILY. 90 tablet 1 5 Active metoprolol XL (TOPROL-XL) 25 mg extended release tablet TAKE 1 TABLET (25 MG TOTAL) BY MOUTH DAILY. 90 tablet 1 4 09/04/19 25 Discontinued Active Problems Problem Noted Date Diagnosed Date Class 2 severe obesity due t o excess calories with serious comorbidity and body mass index (BMI) of 35.0 to 35.9 in adult 08/15/2024 Assessment & Plan (08/15/2024 1:35 PM INSTRUCTOR HAIRSPRING): Mild weight gain, worse over the holiday season; patient reports he typically weighs about 10 lb less, physically active during the summer, working in garden Continue to monitor, Patient is counseled to work on weight loss through dietary and activity changes. Patient is encouraged to decrease caloric intake through portion control, choosing lower calorie foods, and targeting 5-6 servings of vegetables and fruit per day. Patient is encouraged to maintain or target a minimum of 30 minutes moderate intensity exercise 5 days per week. Allergic conjunctivitis 04/01/2023 Meibomian gland dysfunction (MGD) of both eyes 0 04/01/2023 Rupture of right quadriceps tendon 04/01/2023 Aortic aneurysm without rupture 04/07/2022 Assessment & Plan (08/15/2024 1:34 PM INSTRUCTOR HAIRSPRING): Stable, annual surveillance, no major changes x9 years, continue to monitor blood pressure Nodule of left lung 11/11/2018 Overview (11/11/2018): Solitary 7 mm pulmonary nodule in the left lower lobe. Recommend follow up of the Incidental lung nodule in 6 at [address] Essential hypertension 06/03/2018 Assessment & Plan (08/15/2024 1:34 PM INSTRUCTOR HAIRSPRING): Stable, well controlled, blood pressure at goal; no chest pain pressure orthostatics Continue lisinopril-hydrochlorothiazide 20-12.5 mg daily, metoprolol 25 mg daily Mixed hyperlipidemia 06/03/2018 Assessment & Plan (08/15/2024 1:34 PM INSTRUCTOR HAIRSPRING): Stable, well controlled with medications Continue atorvastatin 10 mg daily Nonrheumatic aortic valve stenosis 06/03/2018 Assessment & Plan (08/15/2024 1:35 PM INSTRUCTOR HAIRSPRING): Stable, well controlled, mild progression of disease, performs activities with no limitations, no shortness of breath or orthostatics Will continue to monitor Nonrheumatic aortic valve insufficiency 06/03/20 18 Hiatal hernia 06/03/2018 Assessment & Plan (08/15/2024 1:35 PM INSTRUCTOR HAIRSPRING): Small hiatal hernia seen on imaging; no effects from hernia Hepatic artery stenosis (CMS/HCC) 06/03/2018 Excess skin of eyelid 02/07/2018 Disorder of cornea 02/10/2017 Pseudophakia of both eyes 02/10/2017 Polycythemia 04/29/2016 Erythrocytosis 03/26/2016 Bilateral artificial lens implant 01/01/2016 Ocular hypertension 01/01/2016 Ptosis of eyelid 01/01/2016 Encounters Date Type Department Care Team Description 08/03/2024 8:00 AM INSTRUCTOR HAIRSPRING Office Visit [facility] [address] [place] [address] Josue Smiley MD Mixed hyperlipidemia (Primary Dx); Need for hepatitis B screening test; Encounter for hepatitis C screening test for low risk patient; Encounter to establish care with new doctor; Skin cancer of arm, left; Essential hypertension; Aortic aneurysm without rupture, unspecified portion of aorta (HCC); Nonrheumatic aortic valve stenosis; Hiatal hernia; Class 2 severe obesity due to excess calories with serious comorbidity and body mass index (BMI) of 35.0 to 35.9 in adult (HCC) from Last 3 Months Immunizations Name Administration Dates Next Due Influenza, Unspecified 08/03/2024(Deferr ed: Patient Refused),10/01/2016,06/04/2016 ZOSTER LIVE 10/01/2016,06/04/2016,04/29/2016 Surgical History Surgery Date Site/Laterality Comments CATARACT EXTRACTION 08/02/2014 - 08/01/2015 Bilateral TONSILLECTOMY 08/02/1970 - 08/01/1971 KNEE SURGERY 04/06/[address] Erazo at [place] Medical History Medical History Date Comments HTN (hypertension) Aortic stenosis Aortic insufficiency Hepatic artery stenosis (CMS/HCC) (HCC) Anxiety Hyperlipidemia managed with med ication Family History Medical History Relation Name Comments Diabetes Brother Heart attack Father Heart disease Father Sudden Cardiac Father No Known Problems Mother Mental illness Sister Anesthesia problems Neg Hx Relation Name Status Comments Brother Father Mother Sister Social History Tobacco Use Types Packs/Day Years Used Date Smoking Tobacco: Former Cigarettes Q uit: 1987 Pipe Quit: 1993 Smokeless Tobacco: Never AUDIT-C Answer Date Recorded Q1: How often do you have a drink containing alc ohol? Monthly or less 08/03/2024 Q2: How many drinks containi ng alcohol do you have on a typical day when you are drinking? 1 or 2 08/03/2024 Q3: How often do you have si x or more drinks on one occasion? Never 08/03/2024 PHQ-2 Answer Date Recorded PHQ-2 Total Score (If total score is 3 or more points, staff should administer the PHQ-9) 0 08/03/2024 Personal Safety Answer Date Recorded Have you ever been in or are you currently in a harmful physical or emotional relationship or is someone making you feel afraid or unsafe? Denies 04/06/2023 Sex and Gender Information Value Date Recorded Sex Assigned at Not on file Legal Sex Male 4:26 PM INSTRUCTOR HAIRSPRING Gender Identity Not on file Sexual Orientation Not on file Obstetrics History Last Filed Vital Signs Vital Sign Reading Time Taken Comments Blood Pressure 122/76 08/03/2024 7:51 AM INSTRUCTOR HAIRSPRING Pulse 88 08/03/2024 7:51 AM INSTRUCTOR HAIRSPRING Temperature 36.3 C (97.4 F) 08/03/2024 7:51 AM INSTRUCTOR HAIRSPRING Respiratory Rate 20 08/03/2024 7:51 AM INSTRUCTOR HAIRSPRING Oxygen Saturation 95% 08/03/2024 7:51 AM INSTRUCTOR HAIRSPRING Inhaled Oxygen Concentration - - Weight 97.1 kg (214 lb) 08/03/2024 7:51 AM INSTRUCTOR HAIRSPRING Height 165.1 cm (5' 5 ) 08/03/2024 7:51 AM INSTRUCTOR HAIRSPRING Body Mass Index 35.61 08/03/2024 7:51 AM INSTRUCTOR HAIRSPRING Plan of Treatment Health Maintenance Due Date Last Done Comments Hepatitis C Screening 1945 DTaP/Tdap/Td Vaccine (1 - Tdap) 12/21/1955 Hepatitis B Screening 1962 Pneumococcal vaccine 65+ (1 of 1 - PCV) 2009 Well Visit 65+ 2009 Zoster Vaccine (2 of 3) 11/26/2016 10/02/19 17, 06/04/2016, 04/29/2016 Covid-19 Vaccine (3 - season) 04/02/202408/2020, 10/03/2020 Influenza Vaccine (#1) 2024 10/01/2016, 2015 Depression Screening 08/03/2025 08/03/2024 Fall Risk Assessment 08/03/2025 08/03/2024, 04/06/20 23 Abdominal Aortic Aneurysm (A AA) Screen Completed 09/21/2018 Medical Devices Implanted Type Area Manager Of It Device Identifier Shelf Expiration Date Model / Serial / Lot [employer] Corkscrew Ii Fiberwire 5.5mm 16.3mm 2 2 Full Thread [place] Suture [id number] - [id number] Implanted:Qty: 1 on 04/06/2023 by Kassy Lovell MD at [facility] Right: Knee [employer] 11/30/2027 [id number] / / [id number] [employer] Corkscrew Ii Fiberwire 5.5mm 16.3mm 2 2 Full Thread [place] Suture [id number] - [id number] Implanted:Qty: 1 on 04/06/2023 by Kassy Lovell MD at [facility] Right: Knee [employer] 06/01/2026 [id number] / / [id number] Allosource Allograft Frozen Irradiate Graft Soft Tissue Achilles Tendon [id number] - [id number] Implanted:Qty: 1 on 04/06/2023 by Kassy Lovell MD at [facility] Right: Knee [employer] 12/05/2027 [id number] / / [id number] Procedures Procedure Name Priority Date/Time Associated Diagnosis Comments CTA CHEST ABDOMEN PELVIS Schedule Routine, Read Routine (OP Routine) 09/21/2018 10:41 AM INSTRUCTOR HAIRSPRING Aortic valve stenosis, etiology of cardiac valve disease unspecified from Last 3 Months or Most Recently Relevant to Health Maintenance Results * CTA Chest Abdomen Pelvis (09/21/2018 10:41 AM INSTRUCTOR HAIRSPRING) Anatomical Region Laterality Modality Body N/A Computed Tomogra phy 09/21/2018 3:22 PM INSTRUCTOR HAIRSPRING Impressions 09/21/2018 6:02 PM INSTRUCTOR HAIRSPRING 1. Unchanged aneurysm of the ascending thoracic aorta, measuring maximum 5 x 5 cm. 2. Unchanged 7 mm oval nodule in the left posterior lung base, almost certainly benign. Continue to monitor on follow-up. Dictated by: Brian Stafford M.D. Electronically signed by: Cornel Lagunas M.D. Narrative 09/21/2018 6:02 PM INSTRUCTOR HAIRSPRING EXAMINATION: CTA of the chest, abdomen and pelvis with contrast HISTORY: Aortic stenosis with thoracic aortic aneurysm, follow-up FINDINGS: Computed tomographic images of the chest, abdomen and pelvis were obtained after giving 100 mL Optiray 350 intravenous contrast without incident according to an angiographic protocol. Additional 3-D reconstruction images were created by the radiologist at the scanner and used for interpretation. There is an unchanged ascending thoracic aortic aneurysm. The thoracic aorta remains tortuous. The following measurements are compared with the prior examination, with repeat analogous orthogonal measurements performed at each level. Maximum ascending aortic diameter is 5 x 5 cm, unchanged from prior. At the sinuses of Valsalva: 4 x 3.5 cm, unchanged. At the sinotubular junction: 3.3 x 3.4 cm, unchanged. Other findings: There is mild pulmonary edema. A 7 mm oval, solid nodule in the posterior left lung base at slice 299 is unchanged from the prior study and may represent intrapulmonary lymph node. There is no thoracic lymphadenopathy. Heart is normal in size without pericardial effusion. The descending thoracic and abdominal aorta are normal in caliber. There is a 1.8 cm left mid zone renal cyst. Pelvic viscera are unremarkable. Course and caliber of the colon and small bowel are normal. A right thigh intramuscular lipoma is noted. Bone windows show no suspicious lesions. Procedure Note Cornel Lagunas MD - 09/21/2018 EXAMINATION: CTA of the chest, abdomen and pelvis with contrast HISTORY: Aortic stenosis with thoracic aortic aneurysm, follow-up FINDINGS: Computed tomographic images of the chest, abdomen and pelvis were obtained after giving 100 mL Optiray 350 intravenous contrast without incident according to an angiographic protocol. Additional 3-D reconstruction images were created by the radiologist at the scanner and used for interpretation. There is an unchanged ascending thoracic aortic aneurysm. The thoracic aorta remains tortuous. The following measurements are compared with the prior examination, with repeat analogous orthogonal measurements performed at each level. Maximum ascending aortic diameter is 5 x 5 cm, unchanged from prior. At the sinuses of Valsalva: 4 x 3.5 cm, unchanged. At the sinotubular junction: 3.3 x 3.4 cm, unchanged. Other findings: There is mild pulmonary edema. A 7 mm oval, solid nodule in the posterior left lung base at slice 299 is unchanged from the prior study and may represent intrapulmonary lymph node. There is no thoracic lymphadenopathy. Heart is normal in size without pericardial effusion. The descending thoracic and abdominal aorta are normal in caliber. There is a 1.8 cm left mid zone renal cyst. Pelvic viscera are unremarkable. Course and caliber of the colon and small bowel are normal. A right thigh intramuscular lipoma is noted. Bone windows show no suspicious lesions. IMPRESSION: 1. Unchanged aneurysm of the ascending thoracic aorta, measuring maximum 5 x 5 cm. 2. Unchanged 7 mm oval nodule in the left posterior lung base, almost certainly benign. Continue to monitor on follow-up. Dictated by: Brian Stafford M.D. Electronically signed by: Cornel Lagunas M.D. Camila Colorado MD IMG CT PROCEDURES Final Result from Last 3 Months or Most Recently Relevant to Health Maintenance Insurance MEDICARE [facility] MEDICARE SUPPLEMENT INSURANCE [place] [id number] MEDICARE [facility] MEDICARE SUPPLEMENT INSURANCE [place] [id number] MEDICARE [facility] MEDICARE SUPPLEMENT INSURANCE [place] [id number] MEDICARE [facility] MEDICARE SUPPLEMENT INSURANCE Care Teams Supervisor Laundry Relationship Specialty Start Date End Date Josue Smiley MD [address] [place] [address] PCP - General Family Medicine 08/03/24 Ángel Armas DO [address] [place] [address] Referring Physician Internal Medicine 05/24/18
--- OUTSIDE RECORDS SUMMARY | 2024-09-11 08:37 | XMS_ITS | Referral Summary ---
Author Organization [facility] Address [address] [place] [address] Care Team Providers Care Search Strategist Name Role Phone Ángel Armas DO Unavailable [phone] Josue Smiley MD Primary Care Provider [phone] Encounters Date Type Department Care Team Description 08/03/2024 8:00 AM FIRE PREVENTION INSPECTOR Office Visit [facility] [address] [place] [address] Josue Smiley MD Mixed hyperlipidemia [...] in adult (HCC) from Last 3 Months Allergies Active Allergy Reactions Criticality Noted Date [...] 08/15/2024 Assessment & Plan (08/15/2024 1:35 PM FIRE PREVENTION INSPECTOR): Mild weight gain, worse over the holiday [...] 04/07/2022 Assessment & Plan (08/15/2024 1:34 PM FIRE PREVENTION INSPECTOR): Stable, annual surveillance, no major changes x9 years, continue to monitor blood pressure Nodule of left lung 11/11/2018 Overview (11/11/2018): Solitary 7 mm pulmonary nodule in the left lower lobe. Recommend follow up of the Incidental lung nodule in 6 at [address] Essential hypertension 06/03/2018 Assessment & Plan (08/15/2024 1:34 PM FIRE PREVENTION INSPECTOR): Stable, well controlled, blood pressure at goal; no chest pain pressure orthostatics Continue lisinopril-hydrochlorothiazide 20-12.5 mg daily, metoprolol 25 mg daily Mixed hyperlipidemia 06/03/2018 Assessment & Plan (08/15/2024 1:34 PM FIRE PREVENTION INSPECTOR): Stable, well controlled with medications Continue atorvastatin 10 mg daily Nonrheumatic aortic valve stenosis 06/03/2018 Assessment & Plan (08/15/2024 1:35 PM FIRE PREVENTION INSPECTOR): Stable, well controlled, mild progression of disease, performs activities with no limitations, no shortness of breath or orthostatics Will continue to monitor Nonrheumatic aortic valve insufficiency 06/03/20 18 Hiatal hernia 06/03/2018 Assessment & Plan (08/15/2024 1:35 PM FIRE PREVENTION INSPECTOR): Small hiatal hernia seen on imaging; no effects from hernia Hepatic artery stenosis (CMS/HCC) 06/03/2018 Excess skin of eyelid 02/07/2018 Disorder of cornea 02/10/2017 Pseudophakia of both eyes 02/10/2017 Polycythemia 04/29/2016 Erythrocytosis 03/26/2016 Bilateral artificial lens implant 01/01/2016 Ocular hypertension 01/01/2016 Ptosis of eyelid 01/01/2016 Immunizations Name Administration Dates Next Due Influenza, Unspecified 08/03/2024(Deferr ed: Patient Refused),10/01/2016,06/04/2016 ZOSTER LIVE 10/01/2016,06/04/2016,04/29/2016 Social History Tobacco Use Types Packs/Day Years [...] on file Legal Sex Male 4:26 PM FIRE PREVENTION INSPECTOR Gender Identity Not on file Sexual Orientation Not on file Last Filed Vital Signs Vital Sign Reading Time Taken Comments Blood Pressure 122/76 08/03/2024 7:51 AM FIRE PREVENTION INSPECTOR Pulse 88 08/03/2024 7:51 AM FIRE PREVENTION INSPECTOR Temperature 36.3 C (97.4 F) 08/03/2024 7:51 AM FIRE PREVENTION INSPECTOR Respiratory Rate 20 08/03/2024 7:51 AM FIRE PREVENTION INSPECTOR Oxygen Saturation 95% 08/03/2024 7:51 AM FIRE PREVENTION INSPECTOR Inhaled Oxygen Concentration - - Weight 97.1 kg (214 lb) 08/03/2024 7:51 AM FIRE PREVENTION INSPECTOR Height 165.1 cm (5' 5 ) 08/03/2024 7:51 AM FIRE PREVENTION INSPECTOR Body Mass Index 35.61 08/03/2024 7:51 AM FIRE PREVENTION INSPECTOR Plan of Treatment Not on file Medical Devices Implanted Type Area Assembler Utility Buildings Device Identifier Shelf Expiration Date Model / Serial / Lot [employer] Corkscrew Ii Fiberwire 5.5mm 16.3mm 2 2 Full Thread [place] Suture [id number] - [id number] Implanted:Qty: 1 on 04/06/2023 by Kassy Lovell MD at [facility] Right: Knee [employer] 11/30/2027 [id number] / / [id number] [employer] Corkscrew Ii Fiberwire 5.5mm 16.3mm 2 2 Full Thread [place] Suture [id number] - [id number] Implanted:Qty: 1 on 04/06/2023 by Kassy Lovell MD at [facility] Right: Knee [employer] 06/01/2026 [id number] / / [id number] Allosource Allograft Frozen Irradiate Graft Soft Tissue Achilles Tendon [id number] - [id number] Implanted:Qty: 1 on 04/06/2023 by Kassy Lovell MD at [facility] Right: Knee [employer] 12/05/2027 [id number] / / [id number] Procedures Procedure Name Priority Date/Time Associated Diagnosis Comments CTA CHEST ABDOMEN PELVIS Schedule Routine, Read Routine (OP Routine) 09/21/2018 10:41 AM FIRE PREVENTION INSPECTOR Aortic valve stenosis, etiology of cardiac valve disease unspecified from Last 3 Months or Most Recently Relevant to Health Maintenance Results * CTA Chest Abdomen Pelvis (09/21/2018 10:41 AM FIRE PREVENTION INSPECTOR) Anatomical Region Laterality Modality Body N/A Computed Tomogra phy 09/21/2018 3:22 PM FIRE PREVENTION INSPECTOR Impressions 09/21/2018 6:02 PM FIRE PREVENTION INSPECTOR 1. Unchanged aneurysm of the ascending thoracic aorta, measuring maximum 5 x 5 cm. 2. Unchanged 7 mm oval nodule in the left posterior lung base, almost certainly benign. Continue to monitor on follow-up. Dictated by: Brian Stafford M.D. Electronically signed by: Cornel Lagunas M.D. Narrative 09/21/2018 6:02 PM FIRE PREVENTION INSPECTOR EXAMINATION: CTA of the chest, abdomen and [...] Recently Relevant to Health Maintenance Insurance MEDICARE [facility] MEDICARE SUPPLEMENT INSURANCE MEDICARE [facility] MEDICARE SUPPLEMENT INSURANCE [place] [id number] MEDICARE [facility] MEDICARE SUPPLEMENT INSURANCE [place] [id number] MEDICARE [facility] MEDICARE SUPPLEMENT INSURANCE Care Teams Search Strategist Relationship Specialty Start Date End Date Josue Smiley MD [address] [place] [address] PCP - General Family Medicine 08/03/24 Ángel Armas DO [address] [place] [address] Referring Physician Internal Medicine 05/24/18
--- NOTE | 2024-09-11 08:40 | ED.URI ---
HPI - URI/Sore Throat General Chief Complaint: Upper Respiratory Infection Stated Complaint: throat/ears/fever/cough/aches Source: patient and RN notes reviewed Mode of arrival: ambulatory Limitations: no limitations History of Present Illness HPI Narrative: 78-year-old male presented for complaint of cough, fatigue, low-grade fever and body aches. Onset 2 days. Endorses exposure to COVID. Denies shortness of breath, wheezing, nausea, vomiting diarrhea. says he took 9 aspirin for symptoms. MD elicited complaint: cough Related Data Home Medications ?Medication ?Instructions ?Recorded ?Confirmed ?Last Taken ?Type metoprolol succinate 25 mg 25 mg PO DAILY 09/21/19 05/01/24 Unknown History tablet,extended release 24 hr (Toprol XL) multivitamin 1 tablet PO DAILY 09/21/19 05/01/24 Unknown History ascorbic acid (vitamin C) 500 mg 1,000 mg PO DAILY 09/29/21 05/01/24 Unknown History capsule cholecalciferol (vitamin D3) 25 25 mcg PO DAILY 09/29/21 05/01/24 Unknown History mcg (1,000 unit) capsule cyanocobalamin (vitamin B-12) 1,000 mcg PO DAILY 05/01/24 05/01/24 Unknown History 1,000 mcg tablet Allergies Allergy/AdvReac Type Severity Reaction Status Date / Time Penicillins Allergy Unknown Unknown Verified 05/01/24 13:12 SHELLFISH Allergy Severe SEVERE Uncoded 05/01/24 13:12 N/V/D Review of Systems Review of Systems: CONSTITUTIONAL: Endorses malaise, chills, sweats, fever EYES: Denies visual changes, redness, or discharge ENT: Reports rhinorrhea, congestion, denies sinus pain, otalgia, sore throat CARDIOVASCULAR: Denies chest pain, palpitations, edema RESPIRATORY: Reports cough, post nasal drainage. Denies dyspnea GASTROINTESTINAL: Denies abdominal pain, nausea, vomiting, diarrhea SKIN: Denies rash or itching MUSCULOSKELETAL: Endorses myalgia NEUROLOGIC: Denies headache PMFSH Past Medical History Medical History Quadriceps tendon rupture Thoracic ascending aortic aneurysm Anxiety Atopic dermatitis Essential (primary) hypertension Aortic stenosis Hyperlipidemia Prediabetes Surgical History Surgical History History of surgery on lower extremity (~04/2023) tendon rupture rapair right thigh History of cataract surgery (~2014) b/l History of tonsillectomy (~1971) Family History Family History Father Family history of elevated blood lipids Other Family history of mental disorder Social History Social History Social History: . Lives in [place] with his 2 cats. Pt is very active with [employer] in [place]. He enjoys volunteering. 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 Smoking status: Former smoker Tobacco type: cigarettes Smoking end date: 08/02/90 Additional smoking assessment comments: Quit in Alcohol intake: current Substance use: never Substance use type: does not use Lack of Transportation: No Lack of Food: Never True Current Housing: I Have Housing Concerned About Future Housing: No Difficulty Paying Gas/Electric Bills: No Difficulty Paying for Meds: No Currently Unemployed: No Education: Decline to Answer Difficulty w/ Childcare or Family Care: Decline to Answer Occupation/Education: retired Exam Narrative: GENERAL: mildly Ill-appearing, nontoxic no acute distress. EYES: conjunctivae clear ENT: Mucous membranes moist. TM pearly antony with dull light reflex bilaterally; no tragal tenderness. no drooling, no hoarseness, no trismus, uvula midline. No tripod positioning, muffled voice, soft palate or pharyngeal wall bulging NECK: Supple. No lymphadenopathy CHEST: mild faint crackles to bases. No respiratory distress, speaks in full sentences. HEART: Regular rate and rhythm. No murmur heard. SKIN: Warm, dry, no rash. NEURO: Alert and oriented x3. PSYCH: Normal mood and affect Course Course Emergency Course: Patient is aware of diagnosis, understands and agrees to treatment plan. Anticipatory guidance given. Patient agrees to follow-up as directed and is aware of reasons to seek care at the emergency department. Portions of this record may have been created with voice recognition software Level of Care: Express Care Visit Vital Signs Vital signs: Vital Signs Temperature 98.6 F 09/11/24 08:46 Pulse Rate 111 H 09/11/24 08:46 Respiratory Rate 24 H 09/11/24 08:46 Blood Pressure 144/83 H 09/11/24 08:46 Pulse Oximetry 96 09/11/24 08:46 Oxygen Delivery Room Air 09/11/24 08:46 Temperature 98.6 F 09/11/24 08:46 Pulse Rate 111 H 09/11/24 08:46 Respiratory Rate 24 H 09/11/24 08:46 Blood Pressure 144/83 H 09/11/24 08:46 Pulse Oximetry 96 09/11/24 08:46 Oxygen Delivery Room Air 09/11/24 08:46 reviewed MDM - URI/Sore Throat MDM Narrative Medical decision making narrative: POS covid. Discussed physical exam findings. Advised supportive measures and signs/symptoms to go to the ER. Pt is appropriate for outpt treatment and f/u. Differential Diagnosis Differential diagnosis: Likely upper respiratory infection, sinusitis and viral infection Lab Data Labs: Lab Results 09/11/24 Range/Units 08:58 POC Influenza A Ag Negative (Negative) POC Influenza B Ag Negative (Negative) POC SARS CoV-2 Ag Positive (Negative) Discharge Plan Discharge Clinical Impression: COVID-19 Patient Disposition: Home, Self-Care Condition: Stable Instructions: COVID-19 (Coronavirus Disease 2019) (ED) Additional Instructions: Your rapid COVID test was positive today. The following updated recommendations have been made by the CDC and local Health Departments, regarding COVID-19: - When people get sick with a respiratory virus, they stay home and away from others. - Return to normal activities when, for at least 24 hours, symptoms are improving overall, and if a fever was present, it has been gone without use of a fever-reducing medication. - Once people resume normal activities, they are encouraged to take additional prevention strategies for the next 5 days to curb disease spread, such as taking more steps for dry cleaner presser air, enhancing hygiene practices, wearing a well-fitting mask, keeping a distance from others, and/or getting tested for respiratory viruses. - Enhanced precautions are especially important to protect those most at risk for severe illness, including those over 65 and people with weakened immune systems. Rest, stay hydrated. Tylenol every 8 hours as needed NO ASPIRIN for symptoms. Flonase/nasal spray, Zyrtec, cough syrup cold/flu medications for symptoms as needed Follow up with your primary care provider, call today to schedule an appointment. Go to the ER for worsening symptoms or concerns. Patient Language: Upper Sorbian Prescriptions: New prednisone 20 mg tablet 40 mg PO DAILY 5 Days Qty: 10 0RF albuterol sulfate 90 mcg/actuation HFA aerosol inhaler 2 inh inhalation QID PRN (Reason: shortness of breath or wheezing) Qty: 8.5 0RF No Action multivitamin Tablet 1 tablet PO DAILY metoprolol succinate [Toprol XL] 25 mg tablet extended release 24 hr 25 mg PO DAILY alprazolam 0.5 mg tablet 0.5 mg PO BID PRN (Reason: anxiety) Qty: 180 0RF cyanocobalamin (vitamin B-12) 1,000 mcg tablet 1,000 mcg PO DAILY ascorbic acid (vitamin C) 500 mg capsule 1,000 mg PO DAILY cholecalciferol (vitamin D3) 25 mcg (1,000 unit) capsule 25 mcg PO DAILY ibuprofen 800 mg tablet 800 mg PO TID PRN (Reason: pain) 7 Days Qty: 21 0RF lisinopril-hydrochlorothiazide 20-12.5 mg tablet 0.5 tablet PO DAILY Qty: 45 1RF atorvastatin 10 mg tablet 10 mg PO QHS Qty: 90 1RF Follow-up/Referrals: Jay Serrano MD [Primary Care Provider] - Time of Disposition: 09:12
--- OUTSIDE RECORDS SUMMARY | 2024-09-11 08:40 | XMS_ITS | Continuity of Care Document ---
Author Organization [employer] [place] [address] [place] [address] Phone Care Team Providers Care Stockfeed Miller Name Role Phone Herrera Macias MD Unavailable Unavailable Allergies, Adverse Reactions, Alerts Substance Reaction Status Criticality Penicillins Active No Information Medications Medication Instructions Dosage Effective Dates (start - stop) Status Comments metoprolol succinate ER 25 mg tablet,extended release 24 hr take 1 tablet by oral route every day 25 MG - Active alprazolam 0.5 mg tablet take 1 tablet by oral route 3 times every day 0.5 MG - Active lisinopril 10 mg tablet take 1 tablet by oral route every day 10 MG - Active Vitamin B-12 1,000 mcg/mL oral drops take 1 unit by oral route every day - Active Vitamin D3 400 unit capsule take 1 tablet by oral route every day - Active Atorvastatin 10 mg Tab take 1 tablet (10 MG) by ORAL route every day 10 MG - Active Procedures Procedure Date No Charge Optomap Fundus Photos Oct-- 022 Eye Exam & Treatment Fundus Photography [...] Diagnoses Date Provider Providers Copied on Encounter [facility], [address] [address], [place], [place], [address], [place] tel:[phone] [place] Complete Exam (chief complaint) Pseudophakia of both eyesMeibomia n gland dysfunction (MGD), bilateral, both upper and lower lidsMeibomia n gland dysfunction left eye, upper and lower eyelidsAller gic conjunctivit is, bilateral Oct-1 0-202 2 Gilberto Silverman. [address] [facility] [facility] [address], [place], [place], [address], [place]. tel:[phone] Referring Provider: Herrera Helm, [address] [facility] [facility] [address], [place], [address] . tel:[phone] [facility], [address] [employer] [address], [place], [place], [address], tel:[phone] [place] Complete Exam (chief complaint) Pseudophakia of both eyesRPE mottling of maculaDermat ochalasis of upper and lower eyelids of both eyes 3-202 1 Gilberto Silverman. [address] [employer] [address], [address], [place], [place], [address], [place]. tel:[phone] Referring Provider: Herrera Helm, [address] [employer] [facility] [address], [place], [address] . tel:[phone] [facility], [address], [place], [place], [address], [place] tel:[phone] [place] Complete Exam (chief complaint) Bilateral artificial lens implantPunct ate keratitis, bilateralDer matochalasis of both upper eyelidsMeibo marty gland dysfunction (MGD) of both eyesDrusen (degenerativ e) of macula, right eye 0- 0 Gilberto Silverman. [address] [employer] [address], [address], [place], [place], [address], [place]. tel:[phone] Referring Provider: Herrera Helm, [address] [employer] [address], [place], [address] . tel:[phone] [facility], [address], [place], [place], [address], [place] tel:[phone] [place] Professional Complete Exam (chief complaint) Pseudophakia of both eyesDrusen (degenerativ e) of macula, right eyeOcular hypertension , bilateralPun ctate keratitis, bilateral 2-201 9 Gilberto Silverman. [address] [employer] [address], [address], [place], [place], [address], [place]. tel:[phone] Referring Provider: Herrera Helm, [address] [employer] [address], [place], [address] . tel:[phone] [facility], [address] [place] [address], [place], [place], [address], [place] tel:[phone] [place] Complete Exam (chief complaint) Bilateral artificial lens implantOcula r hypertension , bilateralAbn ormally thick cornea determined by ultrasound pachymetryDe rmatochalasi s of upper and lower eyelids of both eyes 8 Gilberto Silverman. [address], [place], [place], [address], [place]. tel:[phone] Referring Provider: Herrera Helm, [address], [place], [address] . tel:[phone] [facility], [address] [place] [address], [place], [place], [address], [place] tel:[phone] [place] Complete Exam (chief complaint) Abnormally thick cornea determined by ultrasound pachymetryPs eudophakia of both eyes 7 Jennifer Oates. [address], [place], [place], [address], [place]. tel:[phone] Referring Provider: Иван Christiansen, [address], [place], [address] . tel:[phone] [facility], [address] [place] [address], [place], [place], [address], [place] [phone] [place] Complete Exam (chief complaint) No Information 6 Jennifer Oates. [address], [place], [place], [address], [place]. tel:[phone] Referring Provider: Иван Christiansen, [address] [place], [address] . tel:[phone] [facility], [address] [place] [address], [place], [place], [address], [place] tel:[phone] [place] Professional Blurry vision (chief complaint) No Information 5 Jennifer Oates. [address] [facility], [address], [place], [place], [address], . tel:[phone] Referring Provider: Иван Christiansen, [address], [place], [address] . tel:[phone] [facility] Eye [facility], [address] [place] [address], [place], [place], [address], [place] tel:[phone] [place] Professional a comprehensive exam (chief complaint) No Information 4 Jennifer Oates. [address] [facility], [address], [place], [place], [address], . tel:[phone] Referring Provider: Иван Christiansen, [address] [facility] [address], [place], [address] . tel:[phone] [facility], [address] [place] [address], [place], [place], [address], [place] tel:[phone] [place] Professional eyes doing well, without complaint. (chief complaint) No Information 3 Jennifer Oates. [address], [address] [place], [address], . tel:[phone] Referring Provider: Иван Christiansen, [address] [facility] [address], [place], [address] . tel:[phone] [facility], [address] [place] [address], [place], [place], [address], [place] tel:[phone] SEC Rajesh Brooks No Information 3 Wayne Inman. [address], [address], [place], [place], [address], [place]. tel:[phone] [facility], [address] [place] [address], [place], [place], [address], [place] tel:[phone] [place] Professional No Information 2 Wanmiguel angel Oates. [address] [facility], [address] [place], [place], [address], . tel:[phone] Referring Provider: Иван Christiansen, [address] [facility] [place], [address] . tel:[phone] [facility] Eye [facility], [address] [place] [address], [place], [place], [address], [place] tel:[phone] [place] Professional No Information 1 Wanmiguel angel Oates. [address] [facility], [facility] [place], [address], . tel:[phone] Referring Provider: Иван Christiansen, [address] [facility] [place], [address] . tel:[phone] [facility], [address] [place] [address], [place], [place], [address], [place] tel:[phone] [place] Professional No Information 1 Jennifer Oates. [address] [facility], [facility] [place], [address], . tel:[phone] Referring Provider: Иван Christiansen, [address] [facility] [place], [address] . tel:[phone] [facility], [address] [place], [place], [place], [address], [place] tel:[phone] [place] Professional No Information 1 Wanmiguel angel Oates. [address] [facility], [facility] [place], [address], . tel:[phone] Referring Provider: Иван Christiansen, [address], [place], [address] . tel:[phone] Office/outpa tient Visit, Est [facility], [address] [place] [address], [place], [place], [address], [place] [phone] SEC [place] [employer] Professional No Information 1 Wanmiguel angel Oates. [address], [place], [place], [address], [place]. tel:[phone] Referring Provider: Иван Christiansen, [address], [place], [address] . tel:[phone] [facility], [address] [place] [address], [place], [place], [address], [place] tel:[phone] SEC [place] [employer] Professional No Information 1 Wanmiguel angel Oates. [address], [address] [place], [address], [place]. tel:[phone] Referring Provider: Иван Christiansen, [address], [place], [address] . tel:[phone] [facility], [address] [place] [address], [place], [place], [address], [place] tel:[phone] [place] Professional No Information 1 Wanmiguel angel Oates. [address], [address] [place], [address], [place]. tel:[phone] Referring Provider: Иван Christiansen, [address], [place], [address] . tel:[phone] [facility], [address] [place] [address], [place], [place], [address], [place] tel:[phone] Mary Gonzalezissant [place] No Information 0 1 [place] Storm. [address], [address], [place], [place], [address], [place]. tel:[phone] Referring Provider: Иван Christiansen, [address] [facility] [address], [place], [address] . tel:[phone] [facility], [address] [place] [address], [place], [place], [address], [place] [phone] SEC [place] No Information 1 Wayne Storm. [address], [address], [place], [place], [address], [place]. tel:[phone] Referring Provider: Иван Christiansen, [address] [facility] [address], [place], [address] . tel:[phone] [facility], [address] [place] [address], [place], [place], [address], [place] tel:[phone] SEC Rajesh N [facility] No Information 1 [place] Storm. [address], [address], [place], [place], [address], [place]. tel:[phone] Referring Provider: Иван Christiansen, [address] [facility] [address], [place], [address] . tel:[phone] [facility], [address] [place] [address], [place], [place], [address], [place] [phone] SEC [place] No Information 0 Jennifer Oates. [address] [facility], [address], [place], [place], [address], [place]. tel:[phone] Referring Provider: Иван Christiansen, [address] [facility] [address], [place], [address] . tel:[phone] [facility], [address], [place], [place], [address], [place] tel:[phone] [place] Professional No Information Dec-1 0-201 0 [place] Oates. [address], [place], [place], [address], [place]. tel:[phone] Referring Provider: Иван Christiansen, [address], [place], [address] . tel:[phone] [facility], [address] [place] [address], [place], [place], [address], [place] tel:[phone] [facility] No Information Dec-0 9-201 0 Wayne Storm. [address], [address], [place], [place], [address], [place]. tel:[phone] Referring Provider: Иван Christiansen, [address], [place], [address] . tel:[phone] [facility], [address] [place] [address], [place], [place], [address], [place] [phone] SEC Rajesh N [place] No Information Dec-0 8-201 0 Wayne Storm. [address], [address], [place], [place], [address], [place]. tel:[phone] Referring Provider: Иван Christiansen, [address], [place], [address] . tel:[phone] [facility], [address] [place] [address], [place], [place], [address], [place] tel:[phone] SEC Rajesh N [place] No Information Oct-2 0-201 0 [place] Oates. [address], [place], [place], [address], . tel:[phone] Referring Provider: Иван Christiansen, [address], [place], [address] . tel:[phone] Office/outpa tient Visit, Est [facility], [address] [place] [address], [place], [place], [address], [place] tel:[phone] [place] No Information 2-201 0 Wayne Inman. [address], [address], [place], [place], [address], [place]. tel:[phone] [facility], [address] [place] [address], [place], [place], [address], tel:[phone] [place] No Information 7-201 0 Abrahanmiguel angel Oates. [address] [facility], [address], [place], [place], [address], . tel:[phone] Referring Provider: Иван Christiansen, [address] [facility] [address], [place], [address] . tel:[phone] [facility], [address] [place] [address], [place], [place], [address], [place] tel:[phone] [place] No Information 8200 9 Abrahanmiguel angel Oates. [address], [place], [place], [address], . tel:[phone] Referring Provider: Иван Christiansen, [address], [place], [address] . tel:[phone] Office/outpa tient Visit, Est [facility], [address] [place] [address], [place], [place], [address], [place] tel:[phone] [place] No Information 7 Jennifer Oates. [address] [facility], [address], [place], [place], [address], [place]. tel:[phone] Family History Family Member Type Diagnosis Age At Onset Brother Problem (finding) diabetes melli tus in first degree relative Aunt Problem (finding) Aunt Problem (finding) Diabetes mellitus Payers Payer name Insurance type Covered republican ID Authoriza tion(s) [place] [id number] [employer] Medicare Supplement CI [id number] Social History Type Description Quantity Date Captured [...] suppose to see he always sees the COMMUNITY SERVICE OFFICER COORDINATOR... Reason For Referral Reason For Referral No [...] suppose to see he always sees the COMMUNITY SERVICE OFFICER COORDINATOR... Complete Exam The 75 year old male [...] Relat ed to Bilateral artificial lens implant Follow up - Return t o clinic in 1 year for complete exam Impression/Plan - Th ick Pachymetry and IOL OU:- IOL in good postion with open PC OU.- Vision and IOP are stable.- Thick pachymetry has created falsely high IOP readings in the past.- Optic nerve is healthy OU.- Recommend patient return to clinic in 1 year or sooner with problems. Bilateral artificial lens implant - Educational material given Related to Bilateral artificial lens implant Follow up - Return i n 1 year with Иван Rodriguez M.D. for Complete Exam. Impression/Plan - IO L's in good position; open pc. Pt aware IOP elevated with very thick corneas. 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 Return to clinic in 1 year for complete exam or sooner with any problems. - Good ocular health . no treatment needed. Return in 1 year for complete exam or sooner with any problems. Related to LENS REPLACEMENT NEC - Return in 1 year w jah Rodriguez M.D. for Complete Exam Related to LENS REPLACEMENT NEC - RTC in 1 year for a complete e xam Related to See impression: general plan General plan -LENS R EPLACEMENT NEC -HORDEOLUM INTERNUM - IOLs doing well. IOP normal. Discussed meibomitis and the use of a warm compress for relief. RTC in 1 year for a complete exam. Educational materials provided:about today's exam. 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
[2024-09-11 08:46] VITALS: BP 144/83; PULSE 111; RESP 24; TEMP 37; O2SAT 96
[2024-09-11 09:00] LABS: EDCOVIDSCREEN Positive (Negative); EDINFLUASCREEN Negative (Negative); EDINFLUBSCREEN Negative (Negative)
== END 2024-09-11 10:16 | disposition home or self-care (01) ==
PROVIDERS: Emergency Provider Nurse Practitioner Family; PCP Family Medicine
DX: U07.1 COVID-19 (principal); Z87.891 Personal history of nicotine dependence; I10 Essential (primary) hypertension; E78.5 Hyperlipidemia, unspecified; I35.0 Nonrheumatic aortic (valve) stenosis; R73.03 Prediabetes; F41.9 Anxiety disorder, unspecified
CPT/HCPCS: 87426; 87804; 99213; G0463

== ENCOUNTER 2024-09-28 13:49 | Emergency (ER) | payer MEDICARE, SELFPAY ==
[2024-09-28 14:04] VITALS: BP 122/72; PULSE 93; RESP 20; TEMP 36.1; O2SAT 96
--- NOTE | 2024-09-28 15:09 | ED.URI ---
HPI - URI/Sore Throat General Chief Complaint: Upper Respiratory Infection Stated Complaint: fever/cough/fatigue Time Seen by Provider: 09/28/24 15:09 Source: patient Mode of arrival: ambulatory Limitations: no limitations History of Present Illness HPI Narrative: 78-year-old male presented for complaint of cough, chest congestion, fatigue and occasional wheezing. Onset 2 weeks. Patient was seen and 09/11 and tested positive for COVID. At the time he was given a steroid and albuterol inhaler. Says after using the steroid symptoms came back with vengeance. Has been using the albuterol inhaler as needed. Denies nausea, vomiting, diarrhea or lethargy. Related Data Home Medications ?Medication ?Instructions ?Recorded ?Confirmed ?Last Taken ?Type metoprolol succinate 25 mg 25 mg PO DAILY 09/21/19 05/01/24 Unknown History tablet,extended release 24 hr (Toprol XL) multivitamin 1 tablet PO DAILY 09/21/19 05/01/24 Unknown History ascorbic acid (vitamin C) 500 mg 1,000 mg PO DAILY 09/29/21 05/01/24 Unknown History capsule cholecalciferol (vitamin D3) 25 25 mcg PO DAILY 09/29/21 05/01/24 Unknown History mcg (1,000 unit) capsule cyanocobalamin (vitamin B-12) 1,000 mcg PO DAILY 05/01/24 05/01/24 Unknown History 1,000 mcg tablet Allergies Allergy/AdvReac Type Severity Reaction Status Date / Time Penicillins Allergy Unknown Unknown Verified 09/28/24 14:33 SHELLFISH Allergy Severe SEVERE Uncoded 09/28/24 14:33 N/V/D Review of Systems Review of Systems: per HPI All systems reviewed & are unremarkable except as noted in HPI and below PMFSH Past Medical History Medical History Quadriceps tendon rupture Thoracic ascending aortic aneurysm Anxiety Atopic dermatitis Essential (primary) hypertension Aortic stenosis Hyperlipidemia Prediabetes Surgical History Surgical History History of surgery on lower extremity (~04/2023) tendon rupture rapair right thigh History of cataract surgery (~2014) b/l History of tonsillectomy (~1971) Family History Family History Father Family history of elevated blood lipids Other Family history of mental disorder Social History Social History Social History: . Lives in [place] with his 2 cats. Pt is very active with [employer] in [place]. He enjoys volunteering. 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 Smoking status: Former smoker Tobacco type: cigarettes Smoking end date: 08/02/90 Additional smoking assessment comments: Quit in Alcohol intake: current Substance use: never Substance use type: does not use Lack of Transportation: No Lack of Food: Never True Current Housing: I Have Housing Concerned About Future Housing: No Difficulty Paying Gas/Electric Bills: No Difficulty Paying for Meds: No Currently Unemployed: No Education: Decline to Answer Difficulty w/ Childcare or Family Care: Decline to Answer Occupation/Education: retired Comments At time of signature, I have reviewed and agree with nursing past medical, surgical, social and family history unless otherwise noted. Please see nursing chart for further information. There is no relevant family history pertinent to the presenting complaint Exam Narrative: GENERAL: Well-appearing, in no acute distress. EYES: EOMI. No redness or drainage. Conjunctivae normal. ENT: Mucous membranes pink and moist. No rhinorrhea. NECK: Normal AROM. Supple. CHEST: No respiratory distress. Faint Wheezing to all david. diminished lower lobes. HEART: Regular rate and rhythm. No murmur appreciated. ABDOMEN: Soft, nontender, nondistended, normal active bowel sounds. SKIN: Warm, dry, no rash. Capillary refill normal. Normal skin turgor. NEURO: Alert and oriented x3. Gait steady. PSYCH: Normal affect. Course Course Emergency Course: Patient is aware of diagnosis, understands and agrees to treatment plan. Anticipatory guidance given. Patient agrees to follow-up as directed and is aware of reasons to seek care at the emergency department. Portions of this record may have been created with voice recognition software Level of Care: Express Care Visit Vital Signs Vital signs: Vital Signs Temperature 97.0 F L 09/28/24 14:04 Pulse Rate 93 09/28/24 14:04 Respiratory Rate 20 09/28/24 14:04 Blood Pressure 122/72 09/28/24 14:04 Pulse Oximetry 96 09/28/24 14:04 Oxygen Delivery Room Air 09/28/24 14:04 Temperature 97.0 F L 09/28/24 14:04 Pulse Rate 93 09/28/24 14:04 Respiratory Rate 20 09/28/24 14:04 Blood Pressure 122/72 09/28/24 14:04 Pulse Oximetry 96 09/28/24 14:04 Oxygen Delivery Room Air 09/28/24 14:27 MDM - URI/Sore Throat MDM Narrative Medical decision making narrative: Discussed physical exam findings and cxr. Advised supportive measures and signs/symptoms to go to the ER. Pt is appropriate for outpt treatment and f/u. Differential Diagnosis Differential diagnosis: Likely upper respiratory infection, sinusitis, viral infection and bronchitis Imaging Data Radiologist's impression: Patient: Ari Escalona : 1945 MR#: [id number] Age: 78 Acct:[id number] Loc: [facility] ADM Date: 09/28/24Attending Dr: Ordering Physician: Mely Gagnon APRN Date of Service: 09/28/24 Procedure(s): XR chest 2V Accession Number(s): [id number] cc: Mely Gagnon APRN; Darling Serrano MD~ CHEST RADIOGRAPH, PA AND LATERAL CLINICAL HISTORY: cough fatigue . COMPARISON: None available TECHNIQUE: PA and lateral views of the chest. FINDINGS The cardiomediastinal silhouette is unremarkable. The lungs are clear. Visualized osseous structures and soft tissues are unremarkable. IMPRESSION: No focal infiltrate or effusion. Discharge Plan Discharge Clinical Impression: Bronchitis Patient Disposition: Home, Self-Care Condition: Stable Instructions: Antibiotic Form, Acute Bronchitis (ED) Additional Instructions: Acute bronchitis can be contagious because it is usually caused by infection with a virus or bacteria. It is usually for a few days but you can be contagious for up to one week. Avoid crowds until you do not have a fever and symptoms are improved Take medication as directed Recommendations: Flonase spray and Zyrtec (or Claritin/Deedee) over the counter Cough syrup may cause drowsiness; avoid driving or take it at night time. Tylenol 1000mg every 8 hours as needed for pain Symptomatic treatment includes: rest, fluids, and increase humidity of the air at home. Follow up with your primary care provider as needed in 1 week Go to the ER for worsening symptoms or concerns Patient Language: Mozambican Prescriptions: New azithromycin [Zithromax Z-Saurav] 250 mg tablet See Rx Instructions .ROUTE .COMPLEX Qty: 6 0RF Rx Instructions: For 250 mg dose pack: take 500 mg today (day 1), then 250 mg for 4 days (days 2-5) methylprednisolone [Medrol (Saurav)] 4 mg tablets,dose pack See Rx Instructions .ROUTE .COMPLEX Qty: 21 0RF Rx Instructions: orally per package directions No Action prednisone 20 mg tablet 40 mg PO DAILY 5 Days Qty: 10 0RF albuterol sulfate 90 mcg/actuation HFA aerosol inhaler 2 inh inhalation QID PRN (Reason: shortness of breath or wheezing) Qty: 8.5 0RF multivitamin Tablet 1 tablet PO DAILY metoprolol succinate [Toprol XL] 25 mg tablet extended release 24 hr 25 mg PO DAILY alprazolam 0.5 mg tablet 0.5 mg PO BID PRN (Reason: anxiety) Qty: 180 0RF cyanocobalamin (vitamin B-12) 1,000 mcg tablet 1,000 mcg PO DAILY ascorbic acid (vitamin C) 500 mg capsule 1,000 mg PO DAILY cholecalciferol (vitamin D3) 25 mcg (1,000 unit) capsule 25 mcg PO DAILY ibuprofen 800 mg tablet 800 mg PO TID PRN (Reason: pain) 7 Days Qty: 21 0RF lisinopril-hydrochlorothiazide 20-12.5 mg tablet 0.5 tablet PO DAILY Qty: 45 1RF atorvastatin 10 mg tablet 10 mg PO QHS Qty: 90 1RF Follow-up/Referrals: Jay Serrano MD [Primary Care Provider] - Time of Disposition: 15:34
[2024-09-28 15:40] VITALS: BP 120/70; PULSE 60; RESP 18; O2SAT 97
== END 2024-09-28 15:40 | disposition home or self-care (01) ==
PROVIDERS: Emergency Provider Nurse Practitioner Family; PCP Family Medicine
DX: J40 Bronchitis, not specified as acute or chronic (principal); Z87.891 Personal history of nicotine dependence; I10 Essential (primary) hypertension; E78.5 Hyperlipidemia, unspecified; I35.0 Nonrheumatic aortic (valve) stenosis; R73.03 Prediabetes; F41.9 Anxiety disorder, unspecified
CPT/HCPCS: 71046; 99213; G0463